=== PATIENT | female | born 1945 | race Caucasian/White ===

== ENCOUNTER 2016-12-08 10:11 | Observation (INO) | payer OTHER ==
[2016-12-08] MEDS ORDERED: Sodium Chloride 0.9% 1,000 ML IV ONE (10:45)
--- NOTE | 2016-12-08 10:45 | C.PDOC ---
History Of Present Illness 71 Y/O FEMALE PRESENTS TO ED WITH C/O DIFFUSE ABDOMINAL PAIN ONSET THIS MORNING. REPORTS ASSOCIATED DIARRHEA. DENIES FEVER, CHILLS, VOMITING. PT DENIES SIMILAR SYMPTOMS IN THE PAST. Time Seen by Provider: 12/08/16 10:35 Chief Complaint (Nursing): Abdominal Pain History Per: Patient History/Exam Limitations: no limitations Onset/Duration Of Symptoms: Days Current Symptoms Are (Timing): Still Present Location Of Pain/Discomfort: Diffuse Radiation Of Pain To:: None Quality Of Discomfort: "Pain" Associated Symptoms: Diarrhea. denies: Fever, Chills, Vomiting, Urinary Symptoms Recent travel outside of the [place]: No Past Medical History Reviewed: Historical Data, Nursing Documentation, Vital Signs Vital Signs: Last Vital Signs Temp 98.0 F 12/08/16 13:17 Pulse 73 12/08/16 13:17 Resp 20 12/08/16 13:17 BP 115/71 12/08/16 13:17 Pulse Ox 100 12/08/16 15:04 - Medical History PMH: Gastritis, Hypercholesterolemia Family History: States: Unknown Family Hx - Social History Hx Alcohol Use: No Hx Substance Use: No - Immunization History Hx Tetanus Toxoid Vaccination: No Hx Influenza Vaccination: No Hx Pneumococcal Vaccination: No Review Of Systems Except As Marked, All Systems Reviewed And Found Negative. Constitutional: Negative for: Fever, Chills Cardiovascular: Negative for: Chest Pain Respiratory: Negative for: Cough, Shortness of Breath, Wheezing Gastrointestinal: Positive for: Abdominal Pain, Diarrhea. Negative for: Nausea , Vomiting Genitourinary: Negative for: Dysuria Skin: Negative for: Rash Neurological: Negative for: Headache, Dizziness Physical Exam - Physical Exam Appears: Non-toxic, No Acute Distress Skin: Normal Color, Warm, Dry Head: Atraumatic, Normacephalic Oral Mucosa: Moist Chest: Symmetrical Cardiovascular: Rhythm Regular Respiratory: No Rales, No Rhonchi, No Wheezing Gastrointestinal/Abdominal: Soft, No Tenderness, No Distention, No Guarding, No Rebound Back: Normal Inspection, No CVA Tenderness Extremity: Normal ROM, Capillary Refill (< 2 SEC.) Neurological/Psych: Oriented x3, Normal Speech, Normal Cognition ED Course And Treatment - Laboratory Results Result Diagrams: 12/08/16 10:58 12/08/16 10:58 ECG: Interpreted By Me ECG Rhythm: Sinus Rhythm ECG Interpretation: Normal Rate From EC O2 Sat by Pulse Oximetry: 100 (RA) Pulse Ox Interpretation: Normal - CT Scan/US CT ABDOMEN/PELVIS Other Rad Studies (CT/US): Read By Radiologist CT/US Interpretation: IMPRESSION: Mildly dilated appendix measures approximately 7 mm in diameter in is fluid-filled. No significant periappendiceal inflammatory changes are identified. Recommend clinical correlation including physical exam and white blood cell count in order to assess for possibility of acute appendicitis. 3.1 x 4.0 cm probable left ovarian cyst. If indicated, pelvic ultrasound may be considered for further evaluation. Cholelithiasis. Hypoattenuation of the liver compatible with hepatic steatosis. Soft tissue nodular densities throughout bilateral buttocks , nonspecific. Additional incidental findings as above. ULTRASOUND ABDOMEN LIMITED Other Rad Studies (CT/US): Read By Radiologist CT/US Interpretation: IMPRESSION: Echogenic liver may be seen in setting of hepatic parenchymal disease or fatty infiltration. Probable focal fatty sparing within the right hepatic lobe adjacent to the gallbladder fossa. Cholelithiasis. Progress - Re-Evaluation Re-evaluation Note: 12/08/16 10:45 CT ABDOMEN/PELVIS, EKG, LABS ORDERED. TREATED WITH ZOFRAN, MORPHINE, IVFs. - Data Reviewed Data Reviewed: Lab, Diagnostic imaging, EKG, Old records ED OBSERVATION Discharge: Yes Date of observation admission: 12/08/16 Time of observation admission: 10:30 - Observation admission statement Patient is placed on observation because of need: for additional diagnostics to rule-out acute/life threatening conditio - Goals of Observation Goals of Observation: Resolution of symptoms - Progress Note Progress Note: 12/08/16 13:48 APPEARS COMFORTABLE NAD. PENDING SURG RESIDENT EVAL 12/08/16 15:03 PS PENDING ELECTIVE ADILENE SURG @ [facility] NAME 12/28. SP EVAL SURG RESIDENT, PENDING D/W DR QUEZADA 12/08/16 15:13 PT OFFERED ADMISSION BY SURGERY BUT PT REFUSING PT CLEARED FOR DC. DC CIPRO AND FLAGYL X 1 WEEK Disposition Counseled Patient/Family Regarding: Studies Performed, Diagnosis, Need For Followup, Rx Given - Disposition Disposition: HOME/ ROUTINE Disposition Time: 15:14 Condition: GOOD - Clinical Impression Clinical Impression: Abdominal pain, Diarrhea - Scribe Statement The provider has reviewed the documentation as recorded by the Scribe SM All medical record entries made by the Scribe were at my direction and personally dictated by me. I have reviewed the chart and agree that the record accurately reflects my personal performance of the history, physical exam, medical decision making, and the department course for this patient. I have also personally directed, reviewed, and agree with the discharge instructions and disposition.
[2016-12-08] MEDS ORDERED: Sodium Chloride 0.9% 1,000 ML ONE (10:50)
[2016-12-08 10:56] LABS: URINE BILIRUBIN NEGATIVE (NEGATIVE); URINE BLOOD NEGATIVE (NEGATIVE); URINE COLOR Yellow (YELLOW); URINE GLUCOSE (UA) NORMAL (Normal); URINE KETONE TRACE mg/dL (NEGATIVE); URINE LEUKOCYTE ESTERASE NEG Leu/uL (Negative); URINE PROTEIN NEGATIVE (NEGATIVE); URINE UROBILINOGEN NORMAL mg/dL (0.2-1.0); WBC URINE 1 /hpf (0-5)
[2016-12-08 11:02] LABS: BASO % 0.3 % (0.0-2.0); EOS # 0.1 K/uL (0.0-0.7); EOS % 0.5 % (0.0-4.0); LYMPH # 1.1 K/uL (1.0-4.3); LYMPH % 9.9 % (20.0-40.0); MEAN CELL VOLUME 91.5 fL (81.0-99.0); MEAN CORPUSCULAR HEMOGLOBIN 31.4 pg (27.0-31.0); MEAN CORPUSCULAR HGB CONC 34.3 g/dL (33.0-37.0); MEAN PLATELET VOLUME 8.9 fL (7.2-11.7); MONO # 0.6 K/uL (0.0-0.8); MONO % 5.9 % (0.0-10.0); PLATELET COUNT 230 K/uL (130-400); WHITE BLOOD COUNT 10.7 K/uL (4.8-10.8)
[2016-12-08 11:09] LABS: CHLORIDE 102 mmol/L (98-107); SODIUM 136 mmol/L (132-148)
[2016-12-08 11:10] LABS: POTASSIUM 3.9 mmol/L (3.6-5.2)
[2016-12-08 11:12] LABS: ALB/GLOB RATIO 1.3 (1.0-2.1); ALKALINE PHOSPHATASE 72 U/L (38-126); ALT/SGPT 35 U/L (9-52); AST/SGOT 28 U/L (14-36); BILIRUBIN,TOTAL 0.6 mg/dL (0.2-1.3); BLOOD UREA NITROGEN 17 mg/dL (7-17); CALCIUM 9.3 mg/dl (8.6-10.4); CARBON DIOXIDE 22 mmol/L (22-30); GFR AFRICAN-AMERICAN > 60; GLUCOSE,RANDOM 98 mg/dL (65-105); TOTAL PROTEIN 7.7 g/dL (6.3-8.3)
[2016-12-08 11:30] LABS: NEUTROPHIL 86 % (50-75); TOTAL CELLS COUNTED 100
--- NOTE | 2016-12-08 11:58 | US ---
HISTORY: abd pain COMPARISON: Abdominal ultrasound performed 02/20/12. TECHNIQUE: Sonographic evaluation of the right upper quadrant of the abdomen. FINDINGS: LIVER: Measures 13.8 cm in length. Echogenic liver may be seen in setting of hepatic parenchymal disease or fatty infiltration. Probable focal fatty sparing within the right hepatic lobe adjacent to the gallbladder fossa. No focal hepatic mass identified. The main portal vein appears patent with normal directional flow. No intrahepatic bile duct dilatation. GALLBLADDER: Gallstones. No gallbladder wall thickening or pericholecystic edema. Negative sonographic Lucio's sign as assessed by the protozoology teacher. COMMON BILE DUCT: Measures 5 mm. PANCREAS: Not well-visualized. RIGHT KIDNEY: Measures 10.5 x 3.9 x 4.4 cm. No obstructing calculus or hydronephrosis identified. AORTA: Limited visualization appears grossly unremarkable. IVC: Limited visualization appears grossly unremarkable. OTHER FINDINGS: None . IMPRESSION: Echogenic liver may be seen in setting of hepatic parenchymal disease or fatty infiltration. Probable focal fatty sparing within the right hepatic lobe adjacent to the gallbladder fossa. Cholelithiasis.
[2016-12-08] MEDS ORDERED: Iodixanol 320 MG/ML 100 ML BOTTLE IV ONE (12:35)
[2016-12-08 13:17] VITALS: RESP 20
--- NOTE | 2016-12-08 13:27 | CT ---
PROCEDURE: CT Abdomen and Pelvis with contrast HISTORY: abd pain COMPARISON: Limited abdominal ultrasound performed 12/08/16 TECHNIQUE: Contrast dose: 100 cc Visipaque 320 Radiation dose: Total exam DLP = 360.85 MGy-cm. This CT exam was performed using one or more of the following dose reduction techniques: Automated exposure control, adjustment of the mA and/or kV according to patient size, and/or use of iterative reconstruction technique. FINDINGS: LOWER THORAX: Mild bibasilar atelectasis. No focal consolidation, significant pleural effusion, or definite pneumothorax. LIVER: Hypoattenuation of the liver compatible with hepatic steatosis. GALLBLADDER AND BILE DUCTS: Cholelithiasis. PANCREAS: Unremarkable. SPLEEN: Unremarkable. ADRENALS: Unremarkable. KIDNEYS AND URETERS: The kidneys enhance symmetrically. No hydronephrosis or obstructing calculus identified. VASCULATURE: No aortic aneurysm. BOWEL: Stomach is nondistended. Lack of oral contrast limits evaluation for bowel pathology. Bowel loops appear within normal limits of caliber without evidence of obstruction. APPENDIX: The appendix appears mildly dilated measuring approximately 7 mm in diameter and fluid-filled. No significant periappendiceal inflammatory changes are identified. PERITONEUM: No significant free fluid. No definite free air. LYMPH NODES: No bulky adenopathy identified. BLADDER: Unremarkable. REPRODUCTIVE: 3.1 x 4.0 cm suspected left ovarian cyst. BONES: Mild degenerative changes. . OTHER FINDINGS: Soft tissue nodular densities noted throughout bilateral buttocks, nonspecific. IMPRESSION: Mildly dilated appendix measures approximately 7 mm in diameter in is fluid-filled. No significant periappendiceal inflammatory changes are identified. Recommend clinical correlation including physical exam and white blood cell count in order to assess for possibility of acute appendicitis. 3.1 x 4.0 cm probable left ovarian cyst. If indicated, pelvic ultrasound may be considered for further evaluation. Cholelithiasis. Hypoattenuation of the liver compatible with hepatic steatosis. Soft tissue nodular densities throughout bilateral buttocks, nonspecific. Additional incidental findings as above.
[2016-12-08 15:21] VITALS: BP 107/69; PULSE 80; TEMP 97.9; O2SAT 98
--- NOTE | 2016-12-13 15:12 | CARD ---
APPROVED REPORT EKG Measurement Heart [id number] <Conclusion> Normal sinus rhythm Normal ECG
== END 2016-12-08 15:14 | disposition home or self-care (01) ==
LOC: C.ER 10:11 → C.9OBSV 10:30
PROVIDERS: ADMIT Emergency Medicine; ATTEND Emergency Medicine
DX: R10.9 Unspecified abdominal pain (principal); R19.7 Diarrhea, unspecified
CPT/HCPCS: 74177; 76705; 80053; 81001; 83690; 85025; 87086; 96360; 96361; 96374; G0378; J2270; J2405; J7040; Q9967

== ENCOUNTER 2016-12-09 12:44 | Emergency (ER) | payer OTHER ==
[2016-12-09 13:22] VITALS: BMI 23.8
[2016-12-09] MEDS ORDERED: Sodium Chloride 0.9% 1,000 ML IV ONE (13:29)
[2016-12-09] MEDS ORDERED: Sodium Chloride 0.9% 1,000 ML ONE (13:50)
[2016-12-09 13:53] LABS: BASO % 0.4 % (0.0-2.0); EOS % 0.7 % (0.0-4.0); HEMATOCRIT 36.5 % (34.0-47.0); LYMPH # 1.2 K/uL (1.0-4.3); MEAN CELL VOLUME 91.1 fL (81.0-99.0); MEAN CORPUSCULAR HEMOGLOBIN 31.3 pg (27.0-31.0); MEAN CORPUSCULAR HGB CONC 34.3 g/dL (33.0-37.0); MEAN PLATELET VOLUME 8.7 fL (7.2-11.7); MONO # 0.4 K/uL (0.0-0.8); WHITE BLOOD COUNT 4.1 K/uL (4.8-10.8)
[2016-12-09 14:01] LABS: CHLORIDE 100 mmol/L (98-107); SODIUM 137 mmol/L (132-148)
[2016-12-09 14:02] LABS: POTASSIUM 3.8 mmol/L (3.6-5.2)
[2016-12-09 14:04] LABS: ALB/GLOB RATIO 1.1 (1.0-2.1); ALKALINE PHOSPHATASE 54 U/L (38-126); ALT/SGPT 36 U/L (9-52); AST/SGOT 32 U/L (14-36); BILIRUBIN,TOTAL 0.3 mg/dL (0.2-1.3); BLOOD UREA NITROGEN 17 mg/dL (7-17); CALCIUM 8.6 mg/dl (8.6-10.4); CARBON DIOXIDE 27 mmol/L (22-30); GFR AFRICAN-AMERICAN > 60; GLUCOSE,RANDOM 83 mg/dL (65-105); TOTAL PROTEIN 6.8 g/dL (6.3-8.3)
[2016-12-09 15:34] VITALS: BP 112/74; PULSE 71; RESP 16; TEMP 98.1; O2SAT 99
--- NOTE | 2016-12-09 18:27 | C.PDOC ---
History Of Present Illness 71 y/o female presents to ED with complaints of right side abdominal pain. Patient states she was seen at ED yesterday for same symptoms and had a negative CT scan and had surgery consult. Patient is compliant with medications given and reports mild nausea but denies fever, vomiting or any other complaints at this time. Chief Complaint (Nursing): Abdominal Pain History Per: Patient History/Exam Limitations: no limitations Onset/Duration Of Symptoms: Days Current Symptoms Are (Timing): Still Present Past Medical History Reviewed: Historical Data, Nursing Documentation, Vital Signs Vital Signs: Last Vital Signs Temp 98.1 F 12/09/16 15:32 Pulse 71 12/09/16 15:32 Resp 16 12/09/16 15:32 BP 112/74 12/09/16 15:32 Pulse Ox 99 12/09/16 18:35 - Medical History PMH: Gastritis, Hypercholesterolemia, Osteoporosis Surgical History: No Surg Hx Family History: States: No Known Family Hx - Social History Hx Alcohol Use: No Hx Substance Use: No - Immunization History Hx Tetanus Toxoid Vaccination: No Hx Influenza Vaccination: Yes (2016 per pt) Hx Pneumococcal Vaccination: Yes (2016 per pt) Review Of Systems Except As Marked, All Systems Reviewed And Found Negative. Constitutional: Negative for: Fever, Chills Gastrointestinal: Positive for: Nausea, Abdominal Pain. Negative for: Vomiting Musculoskeletal: Negative for: Back Pain Skin: Negative for: Rash Neurological: Negative for: Weakness, Numbness Physical Exam - Physical Exam Appears: Non-toxic, No Acute Distress Skin: Normal Color, Warm, Dry, No Rash Head: Atraumatic, Normacephalic Oral Mucosa: Moist Neck: Normal ROM, Supple Chest: Symmetrical Cardiovascular: Rhythm Regular Respiratory: Normal Breath Sounds, No Rales, No Rhonchi, No Wheezing Gastrointestinal/Abdominal: Soft, Tenderness (Right sided), No Guarding, No Rebound Back: No CVA Tenderness Neurological/Psych: Oriented x3 ED Course And Treatment - Laboratory Results Result Diagrams: 12/09/16 13:46 12/09/16 13:46 O2 Sat by Pulse Oximetry: 99 (RA) Pulse Ox Interpretation: Normal Progress Note: Spoke to Surgery agricultural equipment salesperson who evaluated patient and cleared for discharge to follow up with PMD in 48 hours Disposition - Disposition Disposition: HOME/ ROUTINE Disposition Time: 15:30 Condition: GOOD Additional Instructions: Thank you for letting us take care of you today. Your provider was [Provider Name Here]. You were treated for abdominal pain. The emergency medical care you received today was directed at your acute symptoms. If you were prescribed any medication, please fill it and take as directed. It may take several days for your symptoms to resolve. Return to the Emergency Department if your symptoms worsen, do not improve, or if you have any other problems. Please contact your doctor or call one of the physicians/clinics you have been referred to that are listed on the Patient Visit Information form that is included in your discharge packet. Bring any paperwork you were given at discharge with you along with any medications you are taking to your follow up visit. Our treatment cannot replace ongoing medical care by a primary care provider (PCP) outside of the emergency department. Thank you for allowing the [facility] team to be part of your care today. Follow up with your doctor in 2-3 days. Continue taking the antibiotics as prescribed. Herber por dejarnos cuidar de usted hoy. Vaz proveedor fue [Nombre del proveedor aqu]. Se le trat por dolor abdominal. La atencin mdica de emergencia que recibi hoy fue dirigida a nery sntomas agudos. Si le recetaron algn medicamento, llvelo y tome christiano se le indique. Puede allan varios bazan para que nery sntomas se resuelvan. Vuelva al Departamento de Emergencias si nery sntomas empeoran, no mejoran, o si tiene otros problemas. Comunquese con vaz mdico o llame a aquiles de los mdicos / clnicas a los que [place] sido referido y que se enumeran en el formulario Informacin de la visita al paciente que se incluye en vaz paquete de yamileth. Traiga todo el papeleo que le dieron al yamileth con usted, junto con los medicamentos que est tomando a vaz visita de seguimiento. Nuestro tratamiento no puede reemplazar la atencin m dica continua por un proveedor de atencin primaria (PCP) fuera del departamento de emergencia. Herber por permitir que el equipo de [facility] forme parte de vaz atenci n hoy. Siga con vaz mdico en 2-3 bazan. Contine tomando los antibiticos segn lo prescrito Instructions: Abdominal Pain (ED) Forms: Gen Discharge Inst Finnish Print Language: JAMAICAN - Clinical Impression Clinical Impression: Abdominal pain - Scribe Statement The provider has reviewed the documentation as recorded by the Scribbarbara Bueno All medical record entries made by the Scribe were at my direction and personally dictated by me. I have reviewed the chart and agree that the record accurately reflects my personal performance of the history, physical exam, medical decision making, and the department course for this patient. I have also personally directed, reviewed, and agree with the discharge instructions and disposition.
== END 2016-12-09 16:15 | disposition home or self-care (01) ==
LOC: C.ER 12:44
DX: R10.9 Unspecified abdominal pain (principal)
CPT/HCPCS: 80053; 83690; 85025; 96361; 96374; 96375; 99284; J2405; J7040

== ENCOUNTER 2017-07-15 23:41 | Inpatient (IN) | payer OTHER ==
[2017-07-15 23:42] VITALS: BMI 23.8
[2017-07-16] MEDS ORDERED: Sodium Chloride 0.9% 1,000 ML IV ONE (00:04)
[2017-07-16] MEDS ORDERED: Nitroglycerin 2% Ointment Foilpak UD TOP STA (00:05)
--- NOTE | 2017-07-16 00:06 | C.PDOC ---
History Of Present Illness 71 year old female presents to the ER with a complaint of chest pain that began 20 minutes prior to arrival. Patient describes the pain as a throbbing pain to the left anterior chest wall that worsens with deep inspiration. Denies fever, SOB, or diaphoresis. Chief Complaint (Nursing): Chest Pain History Per: Patient History/Exam Limitations: no limitations Onset/Duration Of Symptoms: Hrs Current Symptoms Are (Timing): Still Present Quality: Other (Throbbing) Associated Symptoms: denies: Nausea, Dyspnea, Diaphoresis, Syncope Modifying Factors: None Exacerbating Factors: None Alleviating Factors: None Recent travel outside of the [place]: No Past Medical History Reviewed: Historical Data, Nursing Documentation, Vital Signs Vital Signs: Last Vital Signs Temp 97.8 F 07/15/17 23:55 Pulse 61 07/16/17 00:49 Resp 18 07/16/17 00:49 BP 99/54 L 07/16/17 00:49 Pulse Ox 100 07/16/17 00:49 - Medical History PMH: Gastritis, Hypercholesterolemia, Osteoporosis Surgical History: Cholecystectomy Family History: States: Unknown Family Hx - Social History Hx Alcohol Use: No Hx Substance Use: No - Immunization History Hx Tetanus Toxoid Vaccination: No Hx Influenza Vaccination: Yes (2016 per pt) Hx Pneumococcal Vaccination: Yes (2016 per pt) Review Of Systems Constitutional: Negative for: Fever Cardiovascular: Positive for: Chest Pain. Negative for: Palpitations Respiratory: Negative for: Shortness of Breath Gastrointestinal: Negative for: Nausea, Vomiting Neurological: Negative for: Weakness, Numbness Physical Exam - Physical Exam Appears: Non-toxic, No Acute Distress Skin: Normal Color, Warm, Dry Head: Atraumatic, Normacephalic Eye(s): bilateral: Normal Inspection Oral Mucosa: Moist Chest: Symmetrical, Tenderness (Mild to left anterior wall) Cardiovascular: Rhythm Regular Respiratory: Normal Breath Sounds, No Rales, No Rhonchi, No Wheezing Gastrointestinal/Abdominal: Soft, No Tenderness Extremity: Normal ROM (x4) Neurological/Psych: Oriented x3, Normal Speech ED Course And Treatment - Laboratory Results Result Diagrams: 07/16/17 00:21 07/16/17 00:21 ECG: Interpreted By Me, Viewed By Me ECG Rhythm: Sinus Rhythm, ST/T Changes, Nonspecific Changes ECG Interpretation: Abnormal Interpretation Of ECG: NSR, ST-T changes in I, AVL which was not noted on tracings of 12/08/2016 Rate From EC O2 Sat by Pulse Oximetry: 100 Pulse Ox Interpretation: Normal - Radiology CXR: Interpreted by Me, Viewed By Me CXR Interpretation: Yes: No Acute Disease, Other (normal chest film). No: Infiltrates, Cardiomegaly Progress Note: EKG, blood work, and CXR ordered. Aspirin, nitrobid, toradol, and IV fluids administered. Disposition Discussed With Dr.: Dominick Krishnamurthy Doctor Will See Patient In The: Hospital Counseled Patient/Family Regarding: Diagnosis - Disposition Disposition: HOSPITALIZED Disposition Time: 02:38 Condition: STABLE Forms: [facility] (Bermudian) - POA Present On Arrival: None - Clinical Impression Clinical Impression: Chest pain - Scribe Statement The provider has reviewed the documentation as recorded by the Scribe Ashok Mcgregor All medical record entries made by the Scribe were at my direction and personally dictated by me. I have reviewed the chart and agree that the record accurately reflects my personal performance of the history, physical exam, medical decision making, and the department course for this patient. I have also personally directed, reviewed, and agree with the discharge instructions and disposition.
--- NOTE | 2017-07-16 00:07 | C.PDOC ---
History Of Present Illness 71 year old female presents to the ER with a complaint of chest pain that began 20 minutes prior to arrival. Patient describes the pain as a throbbing pain to the left anterior chest wall that worsens with deep inspiration. Denies fever, SOB, or diaphoresis. Chief Complaint (Nursing): Chest Pain History Per: Patient History/Exam Limitations: no limitations Onset/Duration Of Symptoms: Hrs Current Symptoms Are (Timing): Still Present Associated Symptoms: denies: Nausea, Dyspnea, Diaphoresis, Syncope, Other (Fever , SOB) Modifying Factors: None Exacerbating Factors: None Alleviating Factors: None Recent travel outside of the [place]: No Past Medical History Reviewed: Historical Data, Nursing Documentation, Vital Signs Vital Signs: Last Vital Signs Temp 97.8 F 07/15/17 23:55 Pulse 60 07/15/17 23:55 Resp 21 07/15/17 23:55 BP 129/67 07/15/17 23:55 Pulse Ox 100 07/15/17 23:55 - Medical History PMH: Gastritis, Hypercholesterolemia, Osteoporosis Surgical History: Cholecystectomy Family History: States: Unknown Family Hx - Social History Hx Alcohol Use: No Hx Substance Use: No - Immunization History Hx Tetanus Toxoid Vaccination: No Hx Influenza Vaccination: Yes (2016 per pt) Hx Pneumococcal Vaccination: Yes (2016 per pt) Review Of Systems Constitutional: Negative for: Fever, Sweats Cardiovascular: Positive for: Chest Pain. Negative for: Palpitations Respiratory: Negative for: Shortness of Breath Gastrointestinal: Negative for: Nausea, Vomiting Neurological: Negative for: Weakness, Numbness Physical Exam - Physical Exam Appears: Non-toxic, No Acute Distress Skin: Normal Color, Warm, Dry Head: Atraumatic, Normacephalic Eye(s): bilateral: Normal Inspection Oral Mucosa: Moist Chest: Tenderness (Mild to left anterior wall) Cardiovascular: Rhythm Regular Respiratory: Normal Breath Sounds, No Rales, No Rhonchi, No Wheezing Gastrointestinal/Abdominal: Soft, No Tenderness Neurological/Psych: Oriented x3, Normal Speech ED Course And Treatment O2 Sat by Pulse Oximetry: 100 (Room air) Pulse Ox Interpretation: Normal Progress Note: EKG, blood work, and CXR ordered. Aspirin, nitrobid, toradol, and IV fluids administered. Disposition - Disposition Forms: [email or web address] Connect (French) - Scribe Statement The provider has reviewed the documentation as recorded by the Scribe Ashok Mcgregor All medical record entries made by the Jasmina were at my direction and personally dictated by me. I have reviewed the chart and agree that the record accurately reflects my personal performance of the history, physical exam, medical decision making, and the department course for this patient. I have also personally directed, reviewed, and agree with the discharge instructions and disposition.
[2017-07-16] MEDS ORDERED: Sodium Chloride 0.9% 1,000 ML ONE (00:10)
[2017-07-16] MEDS ORDERED: Nitroglycerin 2% Ointment Foilpak UD TOP ONE (00:22)
[2017-07-16 00:32] LABS: BASO % 0.5 % (0.0-2.0); EOS # 0.1 K/uL (0.0-0.7); EOS % 1.7 % (0.0-4.0); HEMOGLOBIN 12.6 g/dL (11.0-16.0); LYMPH % 45.4 % (20.0-40.0); MEAN CELL VOLUME 91.6 fL (81.0-99.0); MEAN CORPUSCULAR HEMOGLOBIN 31.6 pg (27.0-31.0); MEAN CORPUSCULAR HGB CONC 34.5 g/dL (33.0-37.0); MEAN PLATELET VOLUME 8.8 fL (7.2-11.7); MONO # 0.4 K/uL (0.0-0.8); MONO % 6.2 % (0.0-10.0); NEUT % 46.2 % (50.0-75.0); RBC 3.99 Mil/uL (3.80-5.20); RED CELL DISTRIBUTION WIDTH 13.9 % (11.5-14.5); WHITE BLOOD COUNT 6.6 K/uL (4.8-10.8)
[2017-07-16 00:43] LABS: D DIMER < 200 ng/mlDDU (0-243); PARTIAL THROMBOPLASTIN TIME 28 SECONDS (21-34); PROTHROMBIN TIME 10.4 SECONDS (9.7-12.2)
[2017-07-16 00:45] LABS: ALB/GLOB RATIO 1.3 (1.0-2.1); ALBUMIN 3.6 g/dL (3.5-5.0); ALT/SGPT 33 U/L (9-52); AST/SGOT 35 U/L (14-36); BLOOD UREA NITROGEN 23 mg/dL (7-17); CALCIUM 8.7 mg/dl (8.6-10.4); GFR AFRICAN-AMERICAN > 60; GFR NON-AFRICAN AMERICAN > 60
[2017-07-16] MEDS ORDERED: Enoxaparin 40 mg Syringe SC STA (02:41)
--- NOTE | 2017-07-16 10:00 | RAD ---
PROCEDURE: CHEST RADIOGRAPH, 1 VIEW HISTORY: chest pain COMPARISON: None available. FINDINGS: LUNGS: No acute pulmonary disease appreciated bilaterally. PLEURA: No pneumothorax or pleural fluid seen. CARDIOVASCULAR: Mild cardiomegaly not excluded. No pulmonary vascular derangement evident. OSSEOUS STRUCTURES: No significant abnormalities. VISUALIZED UPPER ABDOMEN: Normal. OTHER FINDINGS: None. IMPRESSION: Mild cardiomegaly not excluded. No pulmonary vascular derangement appreciated. No airspace disease bilaterally.
[2017-07-16 10:55] LABS: CK-MB 28.7 ng/mL (0.0-3.38)
[2017-07-16 11:21] LABS: TROPONIN I 2.02 ng/mL (0.00-0.120)
[2017-07-16 14:46] LABS: CK-MB 73.7 ng/mL (0.0-3.38); TROPONIN I 11.2 ng/mL (0.00-0.120)
[2017-07-16] MEDS: Heparin25000 units/250ml 1/2NS 25,000 UNITS/250 ML BAG IV PRN (16:06)
[2017-07-16] MEDS: Pantoprazole 20 mg EC Tab PO SCH (16:07)
--- NOTE | 2017-07-16 17:17 | CP.PCM.CON ---
History of Present Illness - History of Present Illness History of Present Illness: Re: Chest pain Elevated serum troponins This patient presented with chest pain throbbing in nature in the anterior chest associated with tenderness There is no history of nausea vomiting diaphoresis dyspnea palpitations dizziness Past medical Systemic hypertension Osteoporosis "Gastritis" Past surgery: Gall bladder removal Exam No distress Afebrile Normal venous pressures Clear lungs ?PMI Normal heart sounds No rub No edema DP +=+ EKG: sinus; no significant STT abnormalities Labs: reviewed; Troponins: 04/16; BUN 23; sugars: 133 Chest X-ray: unremarkable; Personally reviewed Past Patient History - Infectious Disease Hx of Infectious Diseases: None - Past Social History Smoking Status: Never Smoked - CARDIAC Hx Hypercholesterolemia: Yes - MUSCULOSKELETAL/RHEUMATOLOGICAL Hx Osteoporosis: Yes - GASTROINTESTINAL Hx Gastritis: Yes - PSYCHIATRIC Hx Substance Use: No - SURGICAL HISTORY Hx Cholecystectomy: Yes - ANESTHESIA Hx Anesthesia: Yes Hx Anesthesia Reactions: No Meds Allergies/Adverse Reactions: Allergies Allergy/AdvReac Type Severity Reaction Status Date / Time seasonal allergies Allergy Uncoded 07/16/17 00:03 - Medications Medications: Current Medications Aspirin (Ecotrin) 81 mg PO DAILY [facility] Last Admin: 07/16/17 09:19 Dose: 81 mg Clopidogrel Bisulfate (Plavix) 75 mg PO DAILY [facility] Heparin Sodium/Sodium Chloride (Heparin 28888 Units/250ml 1/2 Normal Saline) 25 ,000 units in 250 mls @ 6.532 mls/hr IV .Q24H PRN; Protocol; 12 UNITS/KG/HR PRN Reason: PROTOCOL Last Admin: 07/16/17 16:06 Dose: 12 units/kg/hr, 6.532 mls/hr Pantoprazole Sodium (Protonix Ec Tab) 20 mg PO DAILY [facility] Last Admin: 07/16/17 16:07 Dose: 20 mg Rosuvastatin Calcium (Crestor) 20 mg PO HS [facility] Results - Vital Signs Recent Vital Signs: Last Vital Signs Temp 97.6 F 07/16/17 15:27 Pulse 66 07/16/17 16:00 Resp 18 07/16/17 15:27 BP 127/52 L 07/16/17 15:27 Pulse Ox 99 07/16/17 15:27 - Labs Result Diagrams: 07/16/17 00:21 07/16/17 00:21 Labs: Laboratory Results - last 24 hr 07/16/17 07/16/1707/16/18 00:21 00:21 00:21 WBC 6.6 D RBC 3.99 Hgb 12.6 Hct 36.5 MCV 91.6 MCH 31.6 H MCHC 34.5 RDW 13.9 Plt Count 215 MPV 8.8 Neut % (Auto) 46.2 L Lymph % (Auto) 45.4 H [place] % (Auto) 6.2 Eos % (Auto) 1.7 Baso % (Auto) 0.5 Neut # (Auto) 3.0 Lymph # (Auto) 3.0 [place] # (Auto) 0.4 Eos # (Auto) 0.1 Baso # (Auto) 0.0 PT 10.4 INR 1.0 APTT 28 D-Dimer, Quantitative < 200 Sodium 146 Potassium 3.9 Chloride 107 Carbon Dioxide 28 Anion Gap 15 BUN 23 H Creatinine 0.9 Est GFR ( Amer) > 60 Est GFR (Non-Af Amer) > 60 Random Glucose 133 H Calcium 8.7 Total Bilirubin 0.2 AST 35 ALT 33 Alkaline Phosphatase 62 Total Creatine Kinase CK-MB (Mass) Troponin I 0.0240 Total Protein 6.5 Albumin 3.6 Globulin 2.8 Albumin/Globulin Ratio 1.3 07/16/17 07/16/17 07:27 14:16 WBC RBC Hgb Hct MCV MCH MCHC RDW Plt Count MPV Neut % (Auto) Lymph % (Auto) [place] % (Auto) Eos % (Auto) Baso % (Auto) Neut # (Auto) Lymph # (Auto) [place] # (Auto) Eos # (Auto) Baso # (Auto) PT INR APTT D-Dimer, Quantitative Sodium Potassium Chloride Carbon Dioxide Anion Gap BUN Creatinine Est GFR ( Amer) Est GFR (Non-Af Amer) Random Glucose Calcium Total Bilirubin AST ALT Alkaline Phosphatase Total Creatine Kinase 305 H 1042 H CK-MB (Mass) 28.7 H 73.7 H Troponin I 2.0200 H* 11.2000 H* Total Protein Albumin Globulin Albumin/Globulin Ratio Assessment & Plan - Assessment and Plan (Free Text) Assessment: Ms. Diaz presented with a chest pain syndrome on a background of few risk factors and elevated troponins in the serum with an incremental trend; discounting the chest tenderness in most likelihood this is an acute coronary syndrome/Non ST elevation myocardial infarction; there is no setting or suggestion of pulmonary embolism Agree with anticoagulation Plan: Transfer to the ICU NPO post midnight Cardiac cath. DW patients daughter - Date & Time Date: 07/16/17 Time: 18:35
--- NOTE | 2017-07-16 22:21 | CP.PCM.CON ---
History of Present Illness - History of Present Illness History of Present Illness: 71 y/o female with pmx of hypercholesterolemia presents to [facility] with c/o chest pain. She is diagnosed with NSTEMI and currently being treated conservatively with DAPT + IV heparin. Patient's EKG reveals T wave changes in II, III, AVF (posterior/inferior region). ICU was consulted for increase in troponins. PAtient seen and examined at bedside. PAtient denies any chest pain, deneis any dizziness, denies any palpitations. Denies any abdominal pain. Patient's telemetry reveals HRs in 60s with no block or tachyarrythmia. Pmx: hypercholesterolemia SH: never smokes, no IVDU FH: (+)CAD ROS: reviewed and negative at time of evaluation Review of Systems - Review of Systems Review of Systems: see HPI Past Patient History - Infectious Disease Hx of Infectious Diseases: None - Past Social History Smoking Status: Never Smoked - CARDIAC Hx Hypercholesterolemia: Yes - MUSCULOSKELETAL/RHEUMATOLOGICAL Hx Osteoporosis: Yes - GASTROINTESTINAL Hx Gastritis: Yes - PSYCHIATRIC Hx Substance Use: No - SURGICAL HISTORY Hx Cholecystectomy: Yes - ANESTHESIA Hx Anesthesia: Yes Hx Anesthesia Reactions: No Meds Allergies/Adverse Reactions: Allergies Allergy/AdvReac Type Severity Reaction Status Date / Time seasonal allergies Allergy Uncoded 07/16/17 00:03 - Medications Medications: Current Medications Aspirin (Ecotrin) 81 mg PO DAILY [facility] 234 BEDS AT [facility] Last Admin: 07/16/17 09:19 Dose: 81 mg Clopidogrel Bisulfate (Plavix) 75 mg PO DAILY [facility]CLUDE 234 BEDS AT THE [facility] Heparin Sodium/Sodium Chloride (Heparin 20005 Units/250ml 1/2 Normal Saline) 25 ,000 units in 250 mls @ 6.532 mls/hr IV .Q24H PRN; Protocol; 12 UNITS/KG/HR PRN Reason: PROTOCOL Last Admin: 07/16/17 16:06 Dose: 12 units/kg/hr, 6.532 mls/hr Pantoprazole Sodium (Protonix Ec Tab) 20 mg PO DAILY [facility] 234 BEDS AT THE [facility] Last Admin: 07/16/17 16:07 Dose: 20 mg Rosuvastatin Calcium (Crestor) 20 mg PO HS [facility]CLUDE 234 BEDS AT THE [facility] Last Admin: 07/16/17 22:16 Dose: 20 mg Physical Exam - Head Exam Head Exam: ATRAUMATIC, NORMAL INSPECTION, NORMOCEPHALIC - Eye Exam Eye Exam: Normal appearance - ENT Exam ENT Exam: Mucous Membranes Moist - Respiratory Exam Respiratory Exam: NORMAL BREATHING PATTERN - Cardiovascular Exam Cardiovascular Exam: REGULAR RHYTHM, +S1, +S2, Systolic Murmur - GI/Abdominal Exam GI & Abdominal Exam: Normal Bowel Sounds, Soft. absent: Rebound, Rigid - Extremities Exam Extremities exam: Positive for: normal inspection. Negative for: pedal edema Results - Vital Signs Recent Vital Signs: Last Vital Signs Temp 97.6 F 07/16/17 15:27 Pulse 66 07/16/17 16:00 Resp 18 07/16/17 15:27 BP 127/52 L 07/16/17 15:27 Pulse Ox 99 07/16/17 15:27 - Labs Result Diagrams: 07/16/17 00:21 07/16/17 00:21 Labs: Laboratory Results - last 24 hr 07/16/17 07/16/17 07/16/17 00:21 00:21 00:21 WBC 6.6 D RBC 3.99 Hgb 12.6 Hct 36.5 MCV 91.6 MCH 31.6 H MCHC 34.5 RDW 13.9 Plt Count 215 MPV 8.8 Neut % (Auto) 46.2 L Lymph % (Auto) 45.4 H [place] % (Auto) 6.2 Eos % (Auto) 1.7 Baso % (Auto) 0.5 Neut # (Auto) 3.0 Lymph # (Auto) 3.0 [place] # (Auto) 0.4 Eos # (Auto) 0.1 Baso # (Auto) 0.0 PT 10.4 INR 1.0 APTT 28 D-Dimer, Quantitative < 200 Sodium 146 Potassium 3.9 Chloride 107 Carbon Dioxide 28 Anion Gap 15 BUN 23 H Creatinine 0.9 Est GFR ( Amer) > 60 Est GFR (Non-Af Amer) > 60 Random Glucose 133 H Calcium 8.7 Total Bilirubin 0.2 AST 35 ALT 33 Alkaline Phosphatase 62 Total Creatine Kinase CK-MB (Mass) Troponin I 0.0240 Total Protein 6.5 Albumin 3.6 Globulin 2.8 Albumin/Globulin Ratio 1.3 07/16/17 07/16/17 07:27 14:16 WBC RBC Hgb Hct MCV MCH MCHC RDW Plt Count MPV Neut % (Auto) Lymph % (Auto) [place] % (Auto) Eos % (Auto) Baso % (Auto) Neut # (Auto) Lymph # (Auto) [place] # (Auto) Eos # (Auto) Baso # (Auto) PT INR APTT D-Dimer, Quantitative Sodium Potassium Chloride Carbon Dioxide Anion Gap BUN Creatinine Est GFR ( Amer) Est GFR (Non-Af Amer) Random Glucose Calcium Total Bilirubin AST ALT Alkaline Phosphatase Total Creatine Kinase 305 H 1042 H CK-MB (Mass) 28.7 H 73.7 H Troponin I 2.0200 H* 11.2000 H* Total Protein Albumin Globulin Albumin/Globulin Ratio Assessment & Plan - Assessment and Plan (Free Text) Plan: -NSTEMI:continue DAPT, statin and IV heparin x 48 hours, suspect patient will benefit from cardiology input regarding revascularization. PAtient currently is chest pain free. -consider starting IVF at baseline at 50 mol/hr NS for hydration -obtain echo -continue DVT/PUD ppx -keep patient NPO for any unanticiapted procedures -Patient remains hemodynamically stable. -Patient was informed of current treatment regimen, including treatment with IV heparin. Risks, benefits and alternatives explained. d/w nursing and patient. Please call ICU if patient's clinical status worsens. - Date & Time Date: 07/16/17 Time: 22:26
--- NOTE | 2017-07-16 23:53 | CP.PCM.HP ---
History of Present Illness - History of Present Illness History of Present Illness: History of Present Illness: 71 y/o female with pmx of hypercholesterolemia presents to [facility] with c/o chest pain. She is diagnosed with NSTEMI and currently being treated conservatively with DAPT + IV heparin. Patient's EKG reveals T wave changes in II, III, AVF (posterior/inferior region). ICU was consulted for increase in troponins. PAtient seen and examined at bedside. PAtient denies any chest pain, deneis any dizziness, denies any palpitations. Denies any abdominal pain. Patient's telemetry reveals HRs in 60s with no block or tachyarrythmia. Pmx: hypercholesterolemia SH: never smokes, no IVDU FH: (+)CAD ROS: reviewed and negative at time of evaluation Past Patient History - Infectious Disease Hx of Infectious Diseases: None - Past Social History Smoking Status: Never Smoked - CARDIAC Hx Hypercholesterolemia: Yes - MUSCULOSKELETAL/RHEUMATOLOGICAL Hx Osteoporosis: Yes - GASTROINTESTINAL Hx Gastritis: Yes - PSYCHIATRIC Hx Substance Use: No - SURGICAL HISTORY Hx Cholecystectomy: Yes - ANESTHESIA Hx Anesthesia: Yes Hx Anesthesia Reactions: No Meds Allergies/Adverse Reactions: Allergies Allergy/AdvReac Type Severity Reaction Status Date / Time seasonal allergies Allergy Uncoded 07/16/17 00:03 Results - Vital Signs Recent Vital Signs: Last Vital Signs Temp 97.6 F 07/16/17 15:27 Pulse 66 07/16/17 16:00 Resp 18 07/16/17 15:27 BP 127/52 L 07/16/17 15:27 Pulse Ox 99 07/16/17 15:27 - Labs Result Diagrams: 07/16/17 00:21 07/16/17 00:21 Labs: Laboratory Results - last 24 hr 07/16/17 07/16/17 07/16/17 00:21 00:21 00:21 WBC 6.6 D RBC 3.99 Hgb 12.6 Hct 36.5 MCV 91.6 MCH 31.6 H MCHC 34.5 RDW 13.9 Plt Count 215 MPV 8.8 Neut % (Auto) 46.2 L Lymph % (Auto) 45.4 H [place] % (Auto) 6.2 Eos % (Auto) 1.7 Baso % (Auto) 0.5 Neut # (Auto) 3.0 Lymph # (Auto) 3.0 [place] # (Auto) 0.4 Eos # (Auto) 0.1 Baso # (Auto) 0.0 PT 10.4 INR 1.0 APTT 28 D-Dimer, Quantitative < 200 Sodium 146 Potassium 3.9 Chloride 107 Carbon Dioxide 28 Anion Gap 15 BUN 23 H Creatinine 0.9 Est GFR ( Amer) > 60 Est GFR (Non-Af Amer) > 60 Random Glucose 133 H Calcium 8.7 Total Bilirubin 0.2 AST 35 ALT 33 Alkaline Phosphatase 62 Total Creatine Kinase CK-MB (Mass) Troponin I 0.0240 Total Protein 6.5 Albumin 3.6 Globulin 2.8 Albumin/Globulin Ratio 1.3 07/16/17 07/16/17 07/16/17 07:27 14:16 22:56 WBC RBC Hgb Hct MCV MCH MCHC RDW Plt Count MPV Neut % (Auto) Lymph % (Auto) [place] % (Auto) Eos % (Auto) Baso % (Auto) Neut # (Auto) Lymph # (Auto) [place] # (Auto) Eos # (Auto) Baso # (Auto) PT INR APTT 140 H* D D-Dimer, Quantitative Sodium Potassium Chloride Carbon Dioxide Anion Gap BUN Creatinine Est GFR ( Amer) Est GFR (Non-Af Amer) Random Glucose Calcium Total Bilirubin AST ALT Alkaline Phosphatase Total Creatine Kinase 305 H 1042 H CK-MB (Mass) 28.7 H 73.7 H Troponin I 2.0200 H* 11.2000 H* Total Protein Albumin Globulin Albumin/Globulin Ratio
[2017-07-17] MEDS: Heparin25000 units/250ml 1/2NS 25,000 UNITS/250 ML BAG IV PRN (00:27)
[2017-07-17 08:32] LABS: CK-MB 70.1 ng/mL (0.0-3.38); TROPONIN I 18.1 ng/mL (0.00-0.120)
[2017-07-17] MEDS ORDERED: Iodixanol 320 MG/ML 200 ML BOTTLE IV ONE (08:54)
[2017-07-17] MEDS ORDERED: Midazolam 2 MG/2 ML VIAL ONE (09:43)
[2017-07-17] MEDS ORDERED: Enoxaparin 40 mg Syringe SC SCH (10:00)
--- NOTE | 2017-07-17 10:16 | CP.PCM.PN ---
Subjective - Date & Time of Evaluation Date of Evaluation: 07/17/17 Time of Evaluation: 10:12 - Subjective Subjective: Patient denies any chest pain at this time. Objective - Vital Signs/Intake and Output Vital Signs (last 24 hours): Temp Pulse Resp BP Pulse Ox 97.9 F 55 L 18 119/65 99 07/17/17 07:05 07/17/17 07:05 07/17/17 07:05 07/17/17 07:05 07/17/17 08:29 Intake and Output: 07/17/17 07/17/17 06:59 18:59 Intake Total 281.85 Balance 281.85 - Medications Medications: Current Medications Aspirin (Ecotrin) 81 mg PO DAILY [facility] Last Admin: 07/16/17 09:19 Dose: 81 mg Clopidogrel Bisulfate (Plavix) 75 mg PO DAILY [facility] Heparin Sodium/Sodium Chloride (Heparin 00477 Units/250ml 1/2 Normal Saline) 25 ,000 units in 250 mls @ 4.899 mls/hr IV .Q24H PRN; Protocol; 9 UNITS/KG/HR PRN Reason: PROTOCOL Last Admin: 07/17/17 00:27 Dose: 9 units/kg/hr, 4.899 mls/hr Pantoprazole Sodium (Protonix Ec Tab) 20 mg PO DAILY [facility] Last Admin: 07/16/17 16:07 Dose: 20 mg Rosuvastatin Calcium (Crestor) 20 mg PO HS [facility] Last Admin: 07/16/17 22:16 Dose: 20 mg - Labs Labs: 07/16/17 00:21 07/16/17 00:21 PT 10.4 SECONDS (9.7-12.2) 07/16/17 00:21 INR 1.0 07/16/17 00:21 APTT 56 SECONDS (21-34) H D 07/17/17 07:22 - Head Exam Head Exam: NORMOCEPHALIC - Neck Exam Neck Exam: Normal Inspection - Respiratory Exam Respiratory Exam: NORMAL BREATHING PATTERN - Cardiovascular Exam Cardiovascular Exam: REGULAR RHYTHM - Extremities Exam Extremities Exam: Normal Inspection - Neurological Exam Neurological Exam: Oriented x3 Assessment and Plan (1) Chest pain Assessment & Plan: Patient with chest and double vessel disease with normal LV systolic function. Plans for intervention on RCA and LCx. Continue Heparin and DAPT. Monitor on telemetry. Transfer to another facility in AM for intervention. Status: Acute
--- NOTE | 2017-07-17 10:26 | CARD ---
APPROVED REPORT EKG Measurement Heart [id number] <Conclusion> Sinus bradycardia Otherwise normal ECG
[2017-07-17] MEDS: Pantoprazole 20 mg EC Tab PO SCH (11:22)
--- NOTE | 2017-07-17 12:35 | CARD ---
APPROVED REPORT EKG Measurement Heart [id number] <Conclusion> Sinus bradycardia Otherwise normal ECG
--- NOTE | 2017-07-17 15:10 | CP.PCM.CON ---
<Patrizia Mota - Last Filed: 07/17/17 15:04> History of Present Illness - History of Present Illness History of Present Illness: 71 year old Cypriot-Speaking female with PMHx of HLD admitted to ICU for NSTEMI. Diagnostic Cath showed 80% stenosis of LAD and 90@ stenosis of RCA. [place] [facility] [place] cardiac [place]. ROS POSITIVE: mild Headache, pain at catheter insertion (Left femoral). NEGATIVES: Fever, chills, chest pain, SOB, palpitations, nausea, vomiting, changes in bowel habits, urinary symptoms PMHx: HLD PSHx: cholecystectomy Allergies: Pepermint SocialHx: Denies tobacco, alcohol or illicit drug use FamHx: NOn-Cont. Meds: Reviewed Review of Systems - Review of Systems All systems: reviewed and no additional remarkable complaints except (As per HPI ) Review of Systems: As per HPI Past Patient History - Infectious Disease Hx of Infectious Diseases: None - Past Social History Smoking Status: Never Smoked - CARDIAC Hx Hypercholesterolemia: Yes - MUSCULOSKELETAL/RHEUMATOLOGICAL Hx Osteoporosis: Yes - GASTROINTESTINAL Hx Gastritis: Yes - PSYCHIATRIC Hx Substance Use: No - SURGICAL HISTORY Hx Cholecystectomy: Yes - ANESTHESIA Hx Anesthesia: Yes Hx Anesthesia Reactions: No Meds Allergies/Adverse Reactions: Allergies Allergy/AdvReac Type Severity Reaction Status Date / Time seasonal allergies Allergy Uncoded 07/16/17 00:03 - Medications Medications: Current Medications Aspirin (Ecotrin) 81 mg PO DAILY [facility] Last Admin: 07/17/17 13:24 Dose: 81 mg Clopidogrel Bisulfate (Plavix) 75 mg PO DAILY [facility] Last Admin: 07/17/17 13:23 Dose: 75 mg Heparin Sodium/Sodium Chloride (Heparin 18115 Units/250ml 1/2 Normal Saline) 25 ,000 units in 250 mls @ 4.899 mls/hr IV .Q24H PRN; Protocol; 9 UNITS/KG/HR PRN Reason: PROTOCOL Last Admin: 07/17/17 00:27 Dose: 9 units/kg/hr, 4.899 mls/hr Pantoprazole Sodium (Protonix Ec Tab) 20 mg PO DAILY [facility] Last Admin: 07/17/17 11:22 Dose: Not Given Rosuvastatin Calcium (Crestor) 20 mg PO HS [facility] Last Admin: 07/16/17 22:16 Dose: 20 mg Physical Exam - Constitutional Appears: Well, Non-toxic, No Acute Distress - Head Exam Head Exam: ATRAUMATIC, NORMOCEPHALIC - Eye Exam Eye Exam: EOMI - ENT Exam ENT Exam: Mucous Membranes Moist - Respiratory Exam Respiratory Exam: Clear to Auscultation Bilateral - Cardiovascular Exam Cardiovascular Exam: RRR, +S1, +S2 - GI/Abdominal Exam GI & Abdominal Exam: Soft. absent: Tenderness - Extremities Exam Extremities exam: Positive for: normal inspection. Negative for: pedal edema - Neurological Exam Neurological exam: Alert, Oriented x3 - Skin Additional comments: Dressing over left femoral vein. Dressing clean, dry, and intact. Results - Vital Signs Recent Vital Signs: Last Vital Signs Temp 99 F 07/17/17 14:00 Pulse 62 07/17/17 14:53 Resp 17 07/17/17 14:53 BP 111/62 07/17/17 14:53 Pulse Ox 100 07/17/17 14:53 - Labs Result Diagrams: 07/16/17 00:21 07/16/17 00:21 Labs: Laboratory Results - last 24 hr 07/16/17 07/17/17 07/17/17 22:56 07:22 07:22 APTT 140 H* D 56 H D Total Creatine Kinase 1177 H CK-MB (Mass) 70.1 H Troponin I 18.1000 H* Assessment & Plan - Assessment and Plan (Free Text) Assessment: 71 year old Cypriot-Speaking female with PMHx of HLD admitted to ICU for NSTEMI. Diagnostic Cath showed 80% stenosis of LAD and 90@ stenosis of RCA. Patient [place] [facility] [place] cardiac [place] Plan: Neuro: GCS: 15 Sedation: None Cardio: A: NSTEMI, HLD On Heparin Drip Pt to be [place] tomorrow [place] [facility] [place]. ASA/Plavix Cont. Crestor. Pulm/GI/Renal/Endo No Active Issues at this time Proph Patient on Heparin Drip Patient discussed with ICU Attending Patrizia Mota, PGY- 1 <Mervin Churchill - Last Filed: 07/17/17 16:43> Meds - Medications Medications: Current Medications Acetaminophen (Tylenol 325mg Tab) 650 mg PO Q6 PRN PRN Reason: (1-10) Pain or Fever Aspirin (Ecotrin) 81 mg PO DAILY [facility] Last Admin: 07/17/17 13:24 Dose: 81 mg Clopidogrel Bisulfate (Plavix) 75 mg PO DAILY [facility] Last Admin: 07/17/17 13:23 Dose: 75 mg Heparin Sodium/Sodium Chloride (Heparin 16742 Units/250ml 1/2 Normal Saline) 25 ,000 units in 250 mls @ 4.899 mls/hr IV .Q24H PRN; Protocol; 9 UNITS/KG/HR PRN Reason: PROTOCOL Last Admin: 07/17/17 00:27 Dose: 9 units/kg/hr, 4.899 mls/hr Pantoprazole Sodium (Protonix Ec Tab) 20 mg PO DAILY [facility] Last Admin: 07/17/17 11:22 Dose: Not Given Rosuvastatin Calcium (Crestor) 20 mg PO HS [facility] Last Admin: 07/16/17 22:16 Dose: 20 mg Results - Vital Signs Recent Vital Signs: Last Vital Signs Temp 98.4 F 07/17/17 16:00 Pulse 58 L 07/17/17 16:08 Resp 13 07/17/17 16:08 BP 107/63 07/17/17 16:08 Pulse Ox 97 07/17/17 16:08 - Labs Result Diagrams: 07/16/17 00:21 07/16/17 00:21 Labs: Laboratory Results - last 24 hr 07/16/17 07/17/17 07/17/17 22:56 07:22 07:22 APTT 140 H* D 56 H D Total Creatine Kinase 1177 H CK-MB (Mass) 70.1 H Troponin I 18.1000 H* Attending/Attestation - Attestation I have personally seen and examined this patient.: Yes I have fully participated in the care of the patient.: Yes I have reviewed all pertinent clinical information: Yes Notes (Text): 07/17/17 16:42 I have seen and examined the patient. Medical records, lab studies, and imaging were reviewed by me and a management plan was formulated on multidisciplinary rounds with resident Dr. Mota. I agree with their documented assessment and plan. Diagnostic Cath showed 80% stenosis of LAD and 90@ stenosis of RCA. Patient [place] [facility] [place] cardiac [place]. Monitoring post-cath , currently clinically stable. Critical Care Time 35 minutes. The documented time is cumulative and includes review of patient data/exams/labs /chart review and examination of the patient on rounds and throughout the day; time is exclusive of any procedures or teaching time.
--- NOTE | 2017-07-17 23:27 | CP.PCM.PN ---
Subjective - Date & Time of Evaluation Date of Evaluation: 07/17/17 Time of Evaluation: 19:40 - Subjective Subjective: Pt is feeling better, seen and examined by me today, improving Objective - Vital Signs/Intake and Output Vital Signs (last 24 hours): Temp Pulse Resp BP Pulse Ox 98.7 F 69 17 105/63 98 07/17/17 20:15 07/17/17 22:40 07/17/17 22:40 07/17/17 22:40 07/17/17 22:40 Intake and Output: 07/17/17 07/18/17 18:59 06:59 Intake Total 579.2 219.6 Output Total 300 400 Balance 279.2 -180.4 - Medications Medications: Current Medications Acetaminophen (Tylenol 325mg Tab) 650 mg PO Q6 PRN PRN Reason: (1-10) Pain or Fever Last Admin: 07/17/17 21:46 Dose: 650 mg Aspirin (Ecotrin) 81 mg PO DAILY [facility] Last Admin: 07/17/17 13:24 Dose: 81 mg Clopidogrel Bisulfate (Plavix) 75 mg PO DAILY [facility] Last Admin: 07/17/17 13:23 Dose: 75 mg Heparin Sodium/Sodium Chloride (Heparin 30221 Units/250ml 1/2 Normal Saline) 25 ,000 units in 250 mls @ 4.899 mls/hr IV .Q24H PRN; Protocol; 9 UNITS/KG/HR PRN Reason: PROTOCOL Last Admin: 07/17/17 00:27 Dose: 9 units/kg/hr, 4.899 mls/hr Pantoprazole Sodium (Protonix Ec Tab) 20 mg PO DAILY [facility] Last Admin: 07/17/17 11:22 Dose: Not Given Rosuvastatin Calcium (Crestor) 20 mg PO HS [facility] Last Admin: 07/17/17 21:45 Dose: 20 mg - Labs Labs: 07/16/17 00:21 07/16/17 00:21 PT 10.4 SECONDS (9.7-12.2) 07/16/17 00:21 INR 1.0 07/16/17 00:21 APTT 56 SECONDS (21-34) H D 07/17/17 07:22
[2017-07-18 06:58] LABS: BASO % 0.4 % (0.0-2.0); EOS % 0.6 % (0.0-4.0); LYMPH # 1.8 K/uL (1.0-4.3); LYMPH % 34.5 % (20.0-40.0); MEAN CELL VOLUME 92.3 fL (81.0-99.0); MEAN CORPUSCULAR HEMOGLOBIN 31.6 pg (27.0-31.0); MEAN CORPUSCULAR HGB CONC 34.2 g/dL (33.0-37.0); MEAN PLATELET VOLUME 9.1 fL (7.2-11.7); MONO # 0.4 K/uL (0.0-0.8); MONO % 8.6 % (0.0-10.0); NEUT # 2.9 K/uL (1.8-7.0); NEUT % 55.9 % (50.0-75.0); NRBC % 0.1 % (0.0-2.0); RBC 2.78 Mil/uL (3.80-5.20); RED CELL DISTRIBUTION WIDTH 13.7 % (11.5-14.5); WHITE BLOOD COUNT 5.1 K/uL (4.8-10.8)
[2017-07-18 07:03] LABS: HEMOGLOBIN 8.8 g/dL (11.0-16.0); INR 1.3; PROTHROMBIN TIME 14.1 SECONDS (9.7-12.2)
[2017-07-18 07:11] LABS: ALBUMIN 2.4 g/dL (3.5-5.0); ALT/SGPT 156 U/L (9-52); AST/SGOT 113 U/L (14-36); BLOOD UREA NITROGEN 12 mg/dL (7-17); CALCIUM 6.4 mg/dl (8.6-10.4); GFR AFRICAN-AMERICAN > 60; GFR NON-AFRICAN AMERICAN > 60
--- NOTE | 2017-07-18 07:18 | CARDCATH ---
PROCEDURE DATE: 07/17/2017 BRIEF CLINICAL HISTORY: The patient, who is an elderly female with a history of hypertension with workup, it was decided that the patient needs a cardiac cath. After consenting the patient, the patient was brought to the cardiac catheterization lab and the patient was prepared for the procedure. PROCEDURE TECHNIQUE: After consenting the patient, the patient was prepared for the procedure. Right groin was used for access technique was used for access and after obtaining the access, a 6-Cuban sheath was introduced into the right femoral artery and access was completed without any complication. A 6-Cuban JL4 catheter was used to visualize the left coronary artery system. A 6-Cuban JR4 catheter was used to visualize the right coronary artery system. A 6-Cuban pigtail was used to assess the left ventricle end diastolic pressure and LV function. FINDINGS: The patient had a short left vein without any significant disease, LAD is nonobstructive. Circumflex has a mid vessel about 80% focal lesion. RCA is a medium size vessel with subtotal in the mid portion of the vessel. LV function appears to be normal. CONCLUSION: Double-vessel disease, normal LV systolic function. PLAN: Given the double-vessel disease, the patient is a candidate for intervention. The patient will be continued on heparin, aspirin and Plavix and the patient will be transferred to another facility for intervention of the RCA and circumflex. Kaylee Carrillo MD
[2017-07-18] MEDS ORDERED: Magnesium Sulfate 1 gm in D5W 1 GM/100 ML BAG IVPB ONE (10:00)
[2017-07-18] MEDS ORDERED: Potassium Chloride 20 mEq ER Tab PO ONE ×2 (10:06→14:00)
[2017-07-18] MEDS: Pantoprazole 20 mg EC Tab PO SCH (10:18)
[2017-07-18] MEDS ORDERED: HEPARIN IV ONE (10:22)
[2017-07-18] MEDS ORDERED: SODIUM CHLORIDE 0.9% IV ONE (10:22)
--- NOTE | 2017-07-18 10:30 | CP.PCM.PN ---
Subjective - Date & Time of Evaluation Date of Evaluation: 07/18/17 Time of Evaluation: 10:28 - Subjective Subjective: denies any chest pain or shortness of breath. Objective - Vital Signs/Intake and Output Vital Signs (last 24 hours): Temp Pulse Resp BP Pulse Ox 98.2 F 72 24 91/52 L 97 07/18/17 04:00 07/18/17 07:39 07/18/17 07:39 07/18/17 07:39 07/18/17 07:39 Intake and Output: 07/18/17 07/18/17 06:59 18:59 Intake Total 258.8 4.9 Output Total 400 200 Balance -141.2 -195.1 - Medications Medications: Current Medications Acetaminophen (Tylenol 325mg Tab) 650 mg PO Q6 PRN PRN Reason: (1-10) Pain or Fever Last Admin: 07/17/17 21:46 Dose: 650 mg Aspirin (Ecotrin) 81 mg PO DAILY [facility] Last Admin: 07/18/17 07:50 Dose: 81 mg Clopidogrel Bisulfate (Plavix) 75 mg PO DAILY [facility] Last Admin: 07/18/17 07:49 Dose: 75 mg Heparin Sodium/Sodium Chloride (Heparin 04771 Units/250ml 1/2 Normal Saline) 25 ,000 units in 250 mls @ 4.899 mls/hr IV .Q24H PRN; Protocol; 9 UNITS/KG/HR PRN Reason: PROTOCOL Last Admin: 07/17/17 00:27 Dose: 9 units/kg/hr, 4.899 mls/hr Magnesium Sulfate/Dextrose (Magnesium Sulfate 1 Gm/100 Ml D5w) 1 gm in 100 mls @ 200 mls/hr IVPB ONCE ONE Stop: 07/18/17 10:29 Last Admin: 07/18/17 10:18 Dose: 200 mls/hr Heparin Sodium (Porcine) 1,650 (units/ Sodium Chloride) 1,325 mls @ 50 mls/hr IV ONCE ONE Stop: 07/19/17 06:21 Pantoprazole Sodium (Protonix Ec Tab) 20 mg PO DAILY [facility] Last Admin: 07/18/17 10:18 Dose: 20 mg Potassium Chloride (K-Dur 20 Meq Er Tab) 40 meq PO ONCE ONE Stop: 07/18/17 10:07 Last Admin: 07/18/17 10:20 Dose: 40 meq Potassium Chloride (K-Dur 20 Meq Er Tab) 40 meq PO ONCE ONE Stop: 07/18/17 14:01 Rosuvastatin Calcium (Crestor) 20 mg PO HS [facility] Last Admin: 07/17/17 21:45 Dose: 20 mg - Labs Labs: 07/18/17 06:50 07/18/17 06:50 PT 14.1 SECONDS (9.7-12.2) H 07/18/17 06:50 INR 1.3 07/18/17 06:50 APTT 39 SECONDS (21-34) H D 07/18/17 06:50 - Head Exam Head Exam: NORMOCEPHALIC - Cardiovascular Exam Cardiovascular Exam: REGULAR RHYTHM - Extremities Exam Additional comments: Right groin no bleeding or hematoma. - Neurological Exam Neurological Exam: Oriented x3 Assessment and Plan (1) Chest pain Assessment & Plan: NSTEMI, Troponin trending up. Continue heparin and DAPT. Severe electrolyte abnormalities. Hold intervention and correct electrolyte abnormalities. Keep K> 4 and Mg.2. NPO after midnight, check labs in AM. Plans for intervention in AM. Status: Acute
--- NOTE | 2017-07-18 11:10 | CP.CCUPN ---
<Patrizia Mota - Last Filed: 07/18/17 11:05> CCU Subjective - Physician Review Subjective (Free Text): Patient seen and examined at bedside. No overnight events reported. Patient denies any chest pain or SOB. CCU Objective - Vital Signs / Intake & Output Vital Signs (Last 4 hours): Vital Signs Pulse Resp BP Pulse Ox 07/18/17 07:39 72 24 91/52 L 97 Intake and Output (Last 8hrs): Intake & Output 07/17/17 07/18/17 07/18/17 22:59 06:59 14:59 Intake Total 589.0 39.2 4.9 Output Total 400 200 Balance 189.0 39.2 -195.1 Intake: Intake, IV Amount 69.0 39.2 4.9 Left Antecubital 49.0 39.2 4.9 Right Hand 20 Oral 520 Output: Urine 400 200 Urine, Voided 400 200 Emesis 0 Other: # Voids Urine, Voided 1 0 1 # Bowel Movements 0 0 0 - Physical Exam Narrative Physical Exam (Free Text): - Constitutional Appears: Well, Non-toxic, No Acute Distress - Head Exam Head Exam: ATRAUMATIC, NORMOCEPHALIC - Eye Exam Eye Exam: EOMI - ENT Exam ENT Exam: Mucous Membranes Moist - Respiratory Exam Respiratory Exam: Clear to Auscultation Bilateral - Cardiovascular Exam Cardiovascular Exam: RRR, +S1, +S2 - GI/Abdominal Exam GI & Abdominal Exam: Soft. absent: Tenderness - Extremities Exam Extremities exam: Positive for: normal inspection. Negative for: pedal edema - Neurological Exam Neurological exam: Alert, Oriented x3 - Skin Additional comments: Dressing over left femoral vein. Dressing clean, dry, and intact. - Medications Active Medications: Active Medications Generic Name Dose Route Start Last Admin Trade Name Freq PRN Reason Stop Dose Admin Acetaminophen 650 mg 07/17/17 15:12 07/17/17 21:46 Tylenol 325mg Tab PO 650 mg Q6 PRN Administration (1-10) Pain or Fever Aspirin 81 mg 07/16/17 10:00 07/18/17 10:28 Ecotrin PO Not Given DAILY [facility] Clopidogrel Bisulfate 75 mg 07/17/17 10:00 07/18/17 10:27 Plavix PO Not Given DAILY [facility] Heparin Sodium/Sodium Chloride 25,000 units in 250 mls @ 4.899 mls/hr 15:15 07/17/17 00:27 Heparin 38667 Units/250ml 1/2 Normal Saline IV 9 units/kg/hr .Q24H PRN 4.899 mls/hr PROTOCOL Administration Protocol 9 UNITS/KG/HR Pantoprazole Sodium 20 mg 07/16/17 15:30 07/18/17 10:18 Protonix Ec Tab PO 20 mg DAILY [facility] Administration Potassium Chloride 40 meq 07/18/17 14:00 K-Dur 20 Meq Er Tab PO 07/18/17 14:01 ONCE ONE Rosuvastatin Calcium 5 mg 07/18/17 11:04 Crestor PO HS [facility] - Patient Studies Lab Studies: Lab Studies 07/18/17 07/18/17 07/18/17 Range/Units 06:50 06:50 06:50 WBC 5.1 (4.8-10.8) K/uL RBC 2.78 L (3.80-5.20) Mil/uL Hgb 8.8 L D (11.0-16.0) g/dL Hct 25.7 L (34.0-47.0) % MCV 92.3 (81.0-99.0) fL MCH 31.6 H (27.0-31.0) pg MCHC 34.2 (33.0-37.0) g/dL RDW 13.7 (11.5-14.5) % Plt Count 131 (130-400) K/uL MPV 9.1 (7.2-11.7) fL Neut % (Auto) 55.9 (50.0-75.0) % Lymph % (Auto) 34.5 (20.0-40.0) % [place] % (Auto) 8.6 (0.0-10.0) % Eos % (Auto) 0.6 (0.0-4.0) % Baso % (Auto) 0.4 (0.0-2.0) % Neut # (Auto) 2.9 (1.8-7.0) K/uL Lymph # (Auto) 1.8 (1.0-4.3) K/uL [place] # (Auto) 0.4 (0.0-0.8) K/uL Eos # (Auto) 0.0 (0.0-0.7) K/uL Baso # (Auto) 0.0 (0.0-0.2) K/uL PT 14.1 H (9.7-12.2) SECONDS INR 1.3 APTT 39 H D (21-34) SECONDS Sodium 143 (132-148) mmol/L Potassium 3.0 L (3.6-5.2) mmol/L Chloride 114 H (98-107) mmol/L Carbon Dioxide 22 (22-30) mmol/L Anion Gap 10 (10-20) BUN 12 (7-17) mg/dL Creatinine 0.5 L (0.7-1.2) mg/dL Est GFR ( Amer) > 60 Est GFR (Non-Af Amer) > 60 Random Glucose 66 (65-105) mg/dL Calcium 6.4 L (8.6-10.4) mg/dl Phosphorus 2.6 (2.5-4.5) mg/dL Magnesium 1.7 (1.6-2.3) mg/dL Total Bilirubin 0.3 (0.2-1.3) mg/dL AST 113 H D (14-36) U/L ALT 156 H D (9-52) U/L Alkaline Phosphatase 61 (38-126) U/L Total Protein 4.8 L (6.3-8.3) g/dL Albumin 2.4 L D (3.5-5.0) g/dL Globulin 2.4 (2.2-3.9) gm/dL Albumin/Globulin Ratio 1.0 (1.0-2.1) Laboratory Results - last 24 hr 07/18/17 07/18/17 07/18/17 06:50 06:50 06:50 WBC 5.1 RBC 2.78 L Hgb 8.8 L D Hct 25.7 L MCV 92.3 MCH 31.6 H MCHC 34.2 RDW 13.7 Plt Count 131 MPV 9.1 Neut % (Auto) 55.9 Lymph % (Auto) 34.5 [place] % (Auto) 8.6 Eos % (Auto) 0.6 Baso % (Auto) 0.4 Neut # (Auto) 2.9 Lymph # (Auto) 1.8 [place] # (Auto) 0.4 Eos # (Auto) 0.0 Baso # (Auto) 0.0 PT 14.1 H INR 1.3 APTT 39 H D Sodium 143 Potassium 3.0 L Chloride 114 H Carbon Dioxide 22 Anion Gap 10 BUN 12 Creatinine 0.5 L Est GFR ( Amer) > 60 Est GFR (Non-Af Amer) > 60 Random Glucose 66 Calcium 6.4 L Phosphorus 2.6 Magnesium 1.7 Total Bilirubin 0.3 AST 113 H D ALT 156 H D Alkaline Phosphatase 61 Total Protein 4.8 L Albumin 2.4 L D Globulin 2.4 Albumin/Globulin Ratio 1.0 Review of Systems - Constitutional Constitutional: absent: Fever, Chills - Cardiovascular Cardiovascular: absent: Chest Pain, Irregular Heart Rhythm - Respiratory Respiratory: UNREMARKABLE - Gastrointestinal Gastrointestinal: UNREMARKABLE. absent: Abdominal Pain, Diarrhea - Genitourinary Genitourinary: UNREMARKABLE - Musculoskeletal Musculoskeletal: UNREMARKABLE - Neurological Neurological: UNREMARKABLE. absent: Headaches, Tremor Critical Care Progress Note - Nutrition Nutrition: Nutrition Category Date Time Status NPO Diet [DIET] Diets 07/18/17 Breakfast Active Assessment/Plan - Assessment and Plan (Free Text) Assessment: 71 year old Mongolian-Speaking female with PMHx of HLD admitted to ICU for NSTEMI. Diagnostic Cath showed 80% stenosis of LAD and 90@ stenosis of RCA. Patient to be transferred [facility] tomorrow for therapeutic cardiac cath Plan: Neuro: GCS: 15 Sedation: None Cardio: A: NSTEMI, HLD On Heparin Drip Pt to be transferred tomorrow to [facility] Cont. ASA/Plavix Cont. Crestor. Renal A: Hypocalcemia, Hypomagnesemia, Hypokalemia Magnesium and Potassium replaced Calcium corrected is 7.7 will Monitor. GI: A: Elevated LFT's LFT's likely 2/2 to Crestor Reduced Crestor for 20 to 5 HS Pulm/Endo No Active Issues at this time Proph Patient on Heparin Drip Transferred to [facility] postponed till tomorrow Patient discussed with ICU Attending Patrizia Mota, PGY-1 <Domingo Inman - Last Filed: 07/19/17 16:26> CCU Objective - Vital Signs / Intake & Output Vital Signs (Last 4 hours): Vital Signs Pulse Resp BP Pulse Ox 07/19/17 15:06 59 L 15 112/60 97 07/19/17 15:04 61 14 119/64 07/19/17 15:03 61 15 Intake and Output (Last 8hrs): Intake & Output 07/19/17 07/19/17 07/19/17 06:59 14:59 22:59 Intake Total 64 6 Output Total 700 200 0 Balance -636 -194 0 Intake: Intake, IV Amount 64 6 Left Antecubital 54 6 Right Hand 10 Output: Urine 700 200 0 Urine, Voided 700 200 0 Other: # Voids Urine, Voided 1 1 # Bowel Movements 0 0 - Medications Active Medications: Active Medications Generic Name Dose Route Start Last Admin Trade Name Freq PRN Reason Stop Dose Admin Acetaminophen 650 mg 07/17/17 15:12 07/17/17 21:46 Tylenol 325mg Tab PO 650 mg Q6 PRN Administration (1-10) Pain or Fever Aspirin 81 mg 07/16/17 10:00 07/19/17 10:00 Ecotrin PO Not Given DAILY [facility] Clopidogrel Bisulfate 75 mg 07/17/17 10:00 07/19/17 10:00 Plavix PO Not Given DAILY [facility] Pantoprazole Sodium 20 mg 07/16/17 15:30 07/18/17 10:18 Protonix Ec Tab PO 20 mg DAILY [facility] Administration Rosuvastatin Calcium 5 mg 07/18/17 22:00 07/18/17 23:11 Crestor PO 5 mg HS [facility] Administration - Patient Studies Lab Studies: Microbiology Studies 07/18/17 00:47 MRSA Culture (Admit) - Final Naris MRSA NOT DETECTED Lab Studies 07/19/17 07/19/17 07/18/17 Range/Units 07:14 06:13 23:58 WBC 6.1 (4.8-10.8) K/uL RBC 3.60 L (3.80-5.20) Mil/uL Hgb 11.4 (11.0-16.0) g/dL Hct 33.2 L (34.0-47.0) % MCV 92.3 (81.0-99.0) fL MCH 31.6 H (27.0-31.0) pg MCHC 34.3 (33.0-37.0) g/dL RDW 14.1 (11.5-14.5) % Plt Count 169 (130-400) K/uL MPV 10.0 (7.2-11.7) fL Neut % (Auto) 48.0 L (50.0-75.0) % Lymph % (Auto) 40.7 H (20.0-40.0) % [place] % (Auto) 9.5 (0.0-10.0) % Eos % (Auto) 1.1 (0.0-4.0) % Baso % (Auto) 0.7 (0.0-2.0) % Neut # (Auto) 2.9 (1.8-7.0) K/uL Lymph # (Auto) 2.5 (1.0-4.3) K/uL [place] # (Auto) 0.6 (0.0-0.8) K/uL Eos # (Auto) 0.1 (0.0-0.7) K/uL Baso # (Auto) 0.0 (0.0-0.2) K/uL PT 11.9 (9.7-12.2) SECONDS INR 1.1 APTT 50 H D (21-34) SECONDS Sodium 141 (132-148) mmol/L Potassium 4.1 (3.6-5.2) mmol/L Chloride 103 (98-107) mmol/L Carbon Dioxide 28 (22-30) mmol/L Anion Gap 14 (10-20) BUN 16 (7-17) mg/dL Creatinine 0.7 (0.7-1.2) mg/dL Est GFR ( Amer) > 60 Est GFR (Non-Af Amer) > 60 Random Glucose 93 (65-105) mg/dL Calcium 9.3 (8.6-10.4) mg/dl Phosphorus 3.9 (2.5-4.5) mg/dL Magnesium 2.3 (1.6-2.3) mg/dL Total Bilirubin 0.6 (0.2-1.3) mg/dL AST 93 H (14-36) U/L ALT 159 H (9-52) U/L Alkaline Phosphatase 106 (38-126) U/L Total Protein 7.2 (6.3-8.3) g/dL Albumin 3.9 (3.5-5.0) g/dL Globulin 3.3 (2.2-3.9) gm/dL Albumin/Globulin Ratio 1.2 (1.0-2.1) //18 Range/Units 17:11 WBC (4.8-10.8) K/uL RBC (3.80-5.20) Mil/uL Hgb (11.0-16.0) g/dL Hct (34.0-47.0) % MCV (81.0-99.0) fL MCH (27.0-31.0) pg MCHC (33.0-37.0) g/dL RDW (11.5-14.5) % Plt Count (130-400) K/uL MPV (7.2-11.7) fL Neut % (Auto) (50.0-75.0) % Lymph % (Auto) (20.0-40.0) % [place] % (Auto) (0.0-10.0) % Eos % (Auto) (0.0-4.0) % Baso % (Auto) (0.0-2.0) % Neut # (Auto) (1.8-7.0) K/uL Lymph # (Auto) (1.0-4.3) K/uL [place] # (Auto) (0.0-0.8) K/uL Eos # (Auto) (0.0-0.7) K/uL Baso # (Auto) (0.0-0.2) K/uL PT (9.7-12.2) SECONDS INR APTT 58 H D (21-34) SECONDS Sodium (132-148) mmol/L Potassium (3.6-5.2) mmol/L Chloride (98-107) mmol/L Carbon Dioxide (22-30) mmol/L Anion Gap (10-20) BUN (7-17) mg/dL Creatinine (0.7-1.2) mg/dL Est GFR ( Amer) Est GFR (Non-Af Amer) Random Glucose (65-105) mg/dL Calcium (8.6-10.4) mg/dl Phosphorus (2.5-4.5) mg/dL Magnesium (1.6-2.3) mg/dL Total Bilirubin (0.2-1.3) mg/dL AST (14-36) U/L ALT (9-52) U/L Alkaline Phosphatase (38-126) U/L Total Protein (6.3-8.3) g/dL Albumin (3.5-5.0) g/dL Globulin (2.2-3.9) gm/dL Albumin/Globulin Ratio (1.0-2.1) Laboratory Results - last 24 hr 07/18/17 07/18/17 07/19/17 17:11 23:58 06:13 WBC 6.1 RBC 3.60 L Hgb 11.4 Hct 33.2 L MCV 92.3 MCH 31.6 H MCHC 34.3 RDW 14.1 Plt Count 169 MPV 10.0 Neut % (Auto) 48.0 L Lymph % (Auto) 40.7 H [place] % (Auto) 9.5 Eos % (Auto) 1.1 Baso % (Auto) 0.7 Neut # (Auto) 2.9 Lymph # (Auto) 2.5 [place] # (Auto) 0.6 Eos # (Auto) 0.1 Baso # (Auto) 0.0 PT 11.9 INR 1.1 APTT 58 H D 50 H D Sodium Potassium Chloride Carbon Dioxide Anion Gap BUN Creatinine Est GFR ( Amer) Est GFR (Non-Af Amer) Random Glucose Calcium Phosphorus Magnesium Total Bilirubin AST ALT Alkaline Phosphatase Total Protein Albumin Globulin Albumin/Globulin Ratio 07/19/17 07:14 WBC RBC Hgb Hct MCV MCH MCHC RDW Plt Count MPV Neut % (Auto) Lymph % (Auto) [place] % (Auto) Eos % (Auto) Baso % (Auto) Neut # (Auto) Lymph # (Auto) [place] # (Auto) Eos # (Auto) Baso # (Auto) PT INR APTT Sodium 141 Potassium 4.1 Chloride 103 Carbon Dioxide 28 Anion Gap 14 BUN 16 Creatinine 0.7 Est GFR ( Amer) > 60 Est GFR (Non-Af Amer) > 60 Random Glucose 93 Calcium 9.3 Phosphorus 3.9 Magnesium 2.3 Total Bilirubin 0.6 AST 93 H ALT 159 H Alkaline Phosphatase 106 Total Protein 7.2 Albumin 3.9 Globulin 3.3 Albumin/Globulin Ratio 1.2 Critical Care Progress Note - Nutrition Nutrition: Nutrition Category Date Time Status NPO Diet [DIET] Diets 07/19/17 Breakfast Active Attending/Attestation - Attestation I have personally seen and examined this patient.: Yes I have fully participated in the care of the patient.: Yes I have reviewed all pertinent clinical information: Yes Notes (Text): 07/19/17 16:25 patient seen and examined in the intensive care unit. Transfer to [facility] cancelled because of scheduling Continue anticoagulation continue present treatment
[2017-07-18 13:10] LABS: MEAN CELL VOLUME 92.3 fL (81.0-99.0); MEAN CORPUSCULAR HEMOGLOBIN 30.8 pg (27.0-31.0); MEAN CORPUSCULAR HGB CONC 33.3 g/dL (33.0-37.0); MEAN PLATELET VOLUME 9.4 fL (7.2-11.7); RBC 3.67 Mil/uL (3.80-5.20); RED CELL DISTRIBUTION WIDTH 13.5 % (11.5-14.5); WHITE BLOOD COUNT 6.3 K/uL (4.8-10.8)
[2017-07-18 13:12] LABS: HEMOGLOBIN 11.3 g/dL (11.0-16.0)
--- NOTE | 2017-07-18 15:19 | CARD ---
APPROVED REPORT EKG Measurement Heart [id number] <Conclusion> Normal sinus rhythm Nonspecific ST and T wave abnormality Abnormal ECG
[2017-07-18] MEDS: Heparin25000 units/250ml 1/2NS 25,000 UNITS/250 ML BAG IV PRN (16:59)
--- NOTE | 2017-07-19 00:03 | CP.PCM.PN ---
Subjective - Date & Time of Evaluation Date of Evaluation: 07/18/17 Time of Evaluation: 18:00 - Subjective Subjective: Pt seen and examined at bedside Objective - Vital Signs/Intake and Output Vital Signs (last 24 hours): Temp Pulse Resp BP Pulse Ox 98.7 F 66 16 89/42 L 100 07/18/17 20:00 07/18/17 23:05 07/18/17 23:05 07/18/17 22:05 07/18/17 20:00 Intake and Output: 07/18/17 07/19/17 18:59 06:59 Intake Total 1099.6 224 Output Total 1050 300 Balance 49.6 -76 - Medications Medications: Current Medications Acetaminophen (Tylenol 325mg Tab) 650 mg PO Q6 PRN PRN Reason: (1-10) Pain or Fever Last Admin: 07/17/17 21:46 Dose: 650 mg Aspirin (Ecotrin) 81 mg PO DAILY [facility] Last Admin: 07/18/17 10:28 Dose: Not Given Clopidogrel Bisulfate (Plavix) 75 mg PO DAILY [facility] Last Admin: 07/18/17 10:27 Dose: Not Given Heparin Sodium/Sodium Chloride (Heparin 07703 Units/250ml 1/2 Normal Saline) 25 ,000 units in 250 mls @ 4.899 mls/hr IV .Q24H PRN; Protocol; 9 UNITS/KG/HR PRN Reason: PROTOCOL Last Admin: 07/18/17 16:59 Dose: 11 units/kg/hr, 5.987 mls/hr Pantoprazole Sodium (Protonix Ec Tab) 20 mg PO DAILY [facility] Last Admin: 07/18/17 10:18 Dose: 20 mg Rosuvastatin Calcium (Crestor) 5 mg PO HS [facility] Last Admin: 07/18/17 23:11 Dose: 5 mg - Labs Labs: 07/18/17 13:07 07/18/17 06:50 PT 14.1 SECONDS (9.7-12.2) H 07/18/17 06:50 INR 1.3 07/18/17 06:50 APTT 58 SECONDS (21-34) H D 07/18/17 17:11
[2017-07-19 00:09] LABS: INR 1.1; PROTHROMBIN TIME 11.9 SECONDS (9.7-12.2)
[2017-07-19 06:21] LABS: BASO % 0.7 % (0.0-2.0); EOS # 0.1 K/uL (0.0-0.7); EOS % 1.1 % (0.0-4.0); HEMOGLOBIN 11.4 g/dL (11.0-16.0); LYMPH # 2.5 K/uL (1.0-4.3); LYMPH % 40.7 % (20.0-40.0); MEAN CELL VOLUME 92.3 fL (81.0-99.0); MEAN CORPUSCULAR HEMOGLOBIN 31.6 pg (27.0-31.0); MEAN CORPUSCULAR HGB CONC 34.3 g/dL (33.0-37.0); MONO # 0.6 K/uL (0.0-0.8); MONO % 9.5 % (0.0-10.0); NEUT # 2.9 K/uL (1.8-7.0); NRBC % 0.1 % (0.0-2.0); RBC 3.6 Mil/uL (3.80-5.20); RED CELL DISTRIBUTION WIDTH 14.1 % (11.5-14.5); WHITE BLOOD COUNT 6.1 K/uL (4.8-10.8)
[2017-07-19 07:39] LABS: ALB/GLOB RATIO 1.2 (1.0-2.1); ALBUMIN 3.9 g/dL (3.5-5.0); ALT/SGPT 159 U/L (9-52); AST/SGOT 93 U/L (14-36); BLOOD UREA NITROGEN 16 mg/dL (7-17); CALCIUM 9.3 mg/dl (8.6-10.4); GFR AFRICAN-AMERICAN > 60; GFR NON-AFRICAN AMERICAN > 60
[2017-07-19] MEDS: Pantoprazole 20 mg EC Tab PO SCH (10:00)
--- NOTE | 2017-07-19 18:28 | CP.PCM.PN ---
Subjective - Date & Time of Evaluation Date of Evaluation: 07/19/17 Time of Evaluation: 18:26 - Subjective Subjective: No chets pain or shortness of breath. right and left groins no bleeding or hematoma. Objective - Vital Signs/Intake and Output Vital Signs (last 24 hours): Temp Pulse Resp BP Pulse Ox 98.9 F 67 12 101/66 98 07/19/17 16:00 07/19/17 17:00 07/19/17 17:00 07/19/17 16:06 07/19/17 17:00 Intake and Output: 07/19/17 07/19/17 06:59 18:59 Intake Total 282 186 Output Total 1000 500 Balance -718 -314 - Medications Medications: Current Medications Acetaminophen (Tylenol 325mg Tab) 650 mg PO Q6 PRN PRN Reason: (1-10) Pain or Fever Last Admin: 07/17/17 21:46 Dose: 650 mg Aspirin (Ecotrin) 81 mg PO DAILY [facility] Last Admin: 07/19/17 10:00 Dose: Not Given Clopidogrel Bisulfate (Plavix) 75 mg PO DAILY [facility] Last Admin: 07/19/17 10:00 Dose: Not Given Pantoprazole Sodium (Protonix Ec Tab) 20 mg PO DAILY [facility] Last Admin: 07/19/17 10:00 Dose: Not Given Rosuvastatin Calcium (Crestor) 5 mg PO HS [facility] Last Admin: 07/18/17 23:11 Dose: 5 mg - Labs Labs: 07/19/17 06:13 07/19/17 07:14 PT 11.9 SECONDS (9.7-12.2) 07/18/17 23:58 INR 1.1 07/18/17 23:58 APTT 50 SECONDS (21-34) H D 07/18/17 23:58 - Head Exam Head Exam: NORMOCEPHALIC - Neck Exam Neck Exam: Normal Inspection - Respiratory Exam Respiratory Exam: NORMAL BREATHING PATTERN - Cardiovascular Exam Cardiovascular Exam: REGULAR RHYTHM - Extremities Exam Extremities Exam: Normal Inspection - Neurological Exam Neurological Exam: Oriented x3 Assessment and Plan (1) Chest pain Assessment & Plan: NSTEMI, successful PTCA/Stent of 99.9% RCA. Continue DAPT. Staged PCI of LCx. Discussed with patient and family at bed side. Status: Acute
[2017-07-20 06:36] LABS: BASO % 0.5 % (0.0-2.0); EOS # 0.1 K/uL (0.0-0.7); EOS % 1.1 % (0.0-4.0); HEMOGLOBIN 11.8 g/dL (11.0-16.0); LYMPH # 1.6 K/uL (1.0-4.3); LYMPH % 32.2 % (20.0-40.0); MEAN CELL VOLUME 91.7 fL (81.0-99.0); MEAN CORPUSCULAR HEMOGLOBIN 31.6 pg (27.0-31.0); MEAN CORPUSCULAR HGB CONC 34.5 g/dL (33.0-37.0); MEAN PLATELET VOLUME 9.6 fL (7.2-11.7); MONO # 0.4 K/uL (0.0-0.8); MONO % 8.5 % (0.0-10.0); NEUT # 2.8 K/uL (1.8-7.0); NEUT % 57.7 % (50.0-75.0); NRBC % 0.1 % (0.0-2.0); RBC 3.73 Mil/uL (3.80-5.20); RED CELL DISTRIBUTION WIDTH 13.6 % (11.5-14.5); WHITE BLOOD COUNT 4.9 K/uL (4.8-10.8)
[2017-07-20 06:47] LABS: INR 1.1
[2017-07-20 06:58] LABS: ALB/GLOB RATIO 1.1 (1.0-2.1); ALBUMIN 3.1 g/dL (3.5-5.0); ALT/SGPT 96 U/L (9-52); AST/SGOT 49 U/L (14-36); BLOOD UREA NITROGEN 16 mg/dL (7-17); CALCIUM 7.7 mg/dl (8.6-10.4); GFR AFRICAN-AMERICAN > 60; GFR NON-AFRICAN AMERICAN > 60
--- NOTE | 2017-07-20 08:34 | CP.PCM.PN ---
Subjective - Date & Time of Evaluation Date of Evaluation: 07/19/17 Time of Evaluation: 19:00 - Subjective Subjective: Pt seen and examined at bedside, family is there, no chest pain, shortness of breath, dizziness, nausea, vomitting, seen by cardiology too, NSTEMI, successful PTCA/Stent of 99.9% RCA. Continue DAPT. Staged PCI of LCx. Discussed with patient and family at bed side Objective - Vital Signs/Intake and Output Vital Signs (last 24 hours): Temp Pulse Resp BP Pulse Ox 97.9 F 69 13 110/59 L 98 07/20/17 08:00 07/20/17 08:06 07/20/17 08:06 07/20/17 08:06 07/20/17 08:06 Intake and Output: 07/20/17 07/20/17 06:59 18:59 Intake Total 50 180 Output Total 400 300 Balance -350 -120 - Medications Medications: Current Medications Acetaminophen (Tylenol 325mg Tab) 650 mg PO Q6 PRN PRN Reason: (1-10) Pain or Fever Last Admin: 07/20/17 02:00 Dose: 650 mg Aspirin (Ecotrin) 81 mg PO DAILY [facility] Last Admin: 07/19/17 10:00 Dose: Not Given Clopidogrel Bisulfate (Plavix) 75 mg PO DAILY [facility] Last Admin: 07/19/17 10:00 Dose: Not Given Pantoprazole Sodium (Protonix Ec Tab) 20 mg PO DAILY [facility] Last Admin: 07/19/17 10:00 Dose: Not Given Rosuvastatin Calcium (Crestor) 5 mg PO HS [facility] Last Admin: 07/19/17 22:30 Dose: 5 mg - Labs Labs: 07/20/17 06:29 07/20/17 06:31 PT 12.0 SECONDS (9.7-12.2) 07/20/17 06:31 INR 1.1 07/20/17 06:31 APTT 30 SECONDS (21-34) D 07/20/17 06:31
[2017-07-20] MEDS: Pantoprazole 20 mg EC Tab PO SCH (09:59)
[2017-07-20 11:46] VITALS: BP 112/63; O2SAT 99
--- NOTE | 2017-07-20 12:03 | CP.PCM.PN ---
Subjective - Date & Time of Evaluation Date of Evaluation: 07/20/17 Time of Evaluation: 12:00 - Subjective Subjective: No chest pain or shortness of breath. Objective - Vital Signs/Intake and Output Vital Signs (last 24 hours): Temp Pulse Resp BP Pulse Ox 97.9 F 76 15 112/63 99 07/20/17 08:00 07/20/17 11:05 07/20/17 11:05 07/20/17 11:05 07/20/17 11:05 Intake and Output: 07/20/17 07/20/17 06:59 18:59 Intake Total 50 420 Output Total 400 300 Balance -350 120 - Medications Medications: Current Medications Acetaminophen (Tylenol 325mg Tab) 650 mg PO Q6 PRN PRN Reason: (1-10) Pain or Fever Last Admin: 07/20/17 02:00 Dose: 650 mg Aspirin (Ecotrin) 81 mg PO DAILY [facility] Last Admin: 07/20/17 09:59 Dose: 81 mg Clopidogrel Bisulfate (Plavix) 75 mg PO DAILY [facility] Last Admin: 07/20/17 09:59 Dose: 75 mg Pantoprazole Sodium (Protonix Ec Tab) 20 mg PO DAILY [facility] Last Admin: 07/20/17 09:59 Dose: 20 mg Rosuvastatin Calcium (Crestor) 5 mg PO HS [facility] Last Admin: 07/19/17 22:30 Dose: 5 mg - Labs Labs: 07/20/17 06:29 07/20/17 06:31 PT 12.0 SECONDS (9.7-12.2) 07/20/17 06:31 INR 1.1 07/20/17 06:31 APTT 30 SECONDS (21-34) D 07/20/17 06:31 - Neck Exam Neck Exam: Normal Inspection - Respiratory Exam Respiratory Exam: NORMAL BREATHING PATTERN - Cardiovascular Exam Cardiovascular Exam: REGULAR RHYTHM - Extremities Exam Extremities Exam: Normal Inspection - Neurological Exam Neurological Exam: Oriented x3 Assessment and Plan (1) Chest pain Assessment & Plan: NSTEMI, successful PTCA/Stent of RCA. Cardiac zavaal stable. May D/C home. Follow -up as out patient for staged PCI of LCx as out patient. DAPT compliance. Risk factor modification. Status: Acute
--- NOTE | 2017-07-20 13:58 | CP.PCM.PN ---
Subjective - Date & Time of Evaluation Date of Evaluation: 07/20/17 Time of Evaluation: 13:55 - Subjective Subjective: PATIENT WAS ADMITTED FOR CHEST PAIN AAOX3 / DENIES CHEST PAIN OR SOB NO SIGN OF DISTRESS NOTED Objective - Vital Signs/Intake and Output Vital Signs (last 24 hours): Temp Pulse Resp BP Pulse Ox 97.9 F 76 15 112/63 99 07/20/17 08:00 07/20/17 11:05 07/20/17 11:05 07/20/17 11:05 07/20/17 11:05 Intake and Output: 07/20/17 07/20/17 06:59 18:59 Intake Total 50 420 Output Total 400 300 Balance -350 120 - Medications Medications: Current Medications Acetaminophen (Tylenol 325mg Tab) 650 mg PO Q6 PRN PRN Reason: (1-10) Pain or Fever Last Admin: 07/20/17 02:00 Dose: 650 mg Aspirin (Ecotrin) 81 mg PO DAILY [facility] Last Admin: 07/20/17 09:59 Dose: 81 mg Clopidogrel Bisulfate (Plavix) 75 mg PO DAILY [facility] Last Admin: 07/20/17 09:59 Dose: 75 mg Pantoprazole Sodium (Protonix Ec Tab) 20 mg PO DAILY [facility] Last Admin: 07/20/17 09:59 Dose: 20 mg Rosuvastatin Calcium (Crestor) 5 mg PO HS [facility] Last Admin: 07/19/17 22:30 Dose: 5 mg - Labs Labs: 07/20/17 06:29 07/20/17 06:31 PT 12.0 SECONDS (9.7-12.2) 07/20/17 06:31 INR 1.1 07/20/17 06:31 APTT 30 SECONDS (21-34) D 07/20/17 06:31 Assessment and Plan - Assessment and Plan (Free Text) Assessment: PATIENT SEEN AND EXAMINED AT THE BEDSIDE LUNG SOUND CLEAR ELLY [facility]NI WAS POSITIVE ON ADM PATIENT WENT FOR PTCA/STENT OF RCA AND PLAN IS STAGED PCI LCx OUT PATIENT DISCUSS WITH DR PAZ AND DR TREVINO WHO CLEAR PATIENT FOR DC FOLLOW UP WITH DR TREVINO IN 1 WEEK AT HIS OFFICE ----CALL FOR APPOINTMENT FOLLOW UP WITH DR PAZ AT HIS OFFICE NEXT MONDAY(07/25/2017) ---CALL TO CONFIRM CONTINUE ALL MEDICATION NEW PRESCRIPTION GIVEN ASPIRIN 81 MG BY MOUTH ONE TAB DAILY PLAVIX 75 MG BY MOUTH ONE TAB DAILY ACTIVITY TOLERATED CALL DR TREVINO OR DR PAZ IF SYMPTOMS RETURN OR WORSENING DICUSS WITH PATIENT WHO AGREE AND VERBALIZED UNDERSTANDING
[2017-07-20 16:47] VITALS: PULSE 70; RESP 18; TEMP 97.7
--- NOTE | 2017-07-21 05:11 | CP.PCM.DIS ---
Provider - Provider Date of Admission: 07/17/17 10:30 Attending physician: Dominick Krishnamurthy MD Time Spent in preparation of Discharge (in minutes): 45 Hospital Course - Lab Results Lab Results: Micro Results 07/18/17 00:47 Naris MRSA Culture (Admit) - Final MRSA NOT DETECTED Most Recent Lab Values WBC 4.9 K/uL (4.8-10.8) 07/20/17 06:29 RBC 3.73 Mil/uL (3.80-5.20) L 07/20/17 06:29 Hgb 11.8 g/dL (11.0-16.0) 07/20/17 06:29 Hct 34.3 % (34.0-47.0) 07/20/17 06:29 MCV 91.7 fL (81.0-99.0) 07/20/17 06:29 MCH 31.6 pg (27.0-31.0) H 07/20/17 06:29 MCHC 34.5 g/dL (33.0-37.0) 07/20/17 06:29 RDW 13.6 % (11.5-14.5) 07/20/17 06:29 Plt Count 194 K/uL (130-400) 07/20/17 06:29 MPV 9.6 fL (7.2-11.7) 07/20/17 06:29 Neut % (Auto) 57.7 % (50.0-75.0) 07/20/17 06:29 Lymph % (Auto) 32.2 % (20.0-40.0) 07/20/17 06:29 Butts % (Auto) 8.5 % (0.0-10.0) 07/20/17 06:29 Eos % (Auto) 1.1 % (0.0-4.0) 07/20/17 06:29 Baso % (Auto) 0.5 % (0.0-2.0) 07/20/17 06:29 Neut # (Auto) 2.8 K/uL (1.8-7.0) 07/20/17 06:29 Lymph # (Auto) 1.6 K/uL (1.0-4.3) 07/20/17 06:29 Butts # (Auto) 0.4 K/uL (0.0-0.8) 07/20/17 06:29 Eos # (Auto) 0.1 K/uL (0.0-0.7) 07/20/17 06:29 Baso # (Auto) 0.0 K/uL (0.0-0.2) 07/20/17 06:29 PT 12.0 SECONDS (9.7-12.2) 07/20/17 06:31 INR 1.1 07/20/17 06:31 APTT 30 SECONDS (21-34) D 07/20/17 06:31 D-Dimer, Quantitative < 200 ng/mlDDU (0-243) 07/16/17 00:21 Sodium 142 mmol/L (132-148) 07/20/17 06:31 Potassium 3.9 mmol/L (3.6-5.2) 07/20/17 06:31 Chloride 105 mmol/L (98-107) 07/20/17 06:31 Carbon Dioxide 25 mmol/L (22-30) 07/20/17 06:31 Anion Gap 16 (10-20) 07/20/17 06:31 BUN 16 mg/dL (7-17) 07/20/17 06:31 Creatinine 0.7 mg/dL (0.7-1.2) 07/20/17 06:31 Est GFR ( Amer) > 60 07/20/17 06:31 Est GFR (Non-Af Amer) > 60 07/20/17 06:31 Random Glucose 72 mg/dL (65-105) 07/20/17 06:31 Calcium 7.7 mg/dl (8.6-10.4) L 07/20/17 06:31 Phosphorus 4.5 mg/dL (2.5-4.5) 07/20/17 06:31 Magnesium 2.1 mg/dL (1.6-2.3) 07/20/17 06:31 Total Bilirubin 0.5 mg/dL (0.2-1.3) 07/20/17 06:31 AST 49 U/L (14-36) H D 07/20/17 06:31 ALT 96 U/L (9-52) H D 07/20/17 06:31 Alkaline Phosphatase 72 U/L (38-126) 07/20/17 06:31 Total Creatine Kinase 1177 U/L (30-135) H 07/17/17 07:22 CK-MB (Mass) 70.1 ng/mL (0.0-3.38) H 07/17/17 07:22 Troponin I 18.1000 ng/mL (0.00-0.120) H* 07/17/17 07:22 Total Protein 6.1 g/dL (6.3-8.3) L 07/20/17 06:31 Albumin 3.1 g/dL (3.5-5.0) L D 07/20/17 06:31 Globulin 2.9 gm/dL (2.2-3.9) 07/20/17 06:31 Albumin/Globulin Ratio 1.1 (1.0-2.1) 07/20/17 06:31 - Hospital Course Hospital Course: Pt seen and examined at bedside, is stable for discharge, deneis any chest pain , nausea, vomitting, diagnosed of NSTEMI, successful PTCA/Stent of RCA. Cardiac zavala stable. July D/C home. Follow-up as out patient for staged PCI of LCx as out patient. DAPT compliance. Risk factor modification. Discharge Exam - Head Exam Head Exam: NORMOCEPHALIC - Eye Exam Eye Exam: EOMI, Normal appearance, PERRL Pupil Exam: NORMAL ACCOMODATION, PERRL - ENT Exam ENT Exam: Mucous Membranes Moist - Respiratory Exam Respiratory Exam: Clear to PA & Lateral, NORMAL BREATHING PATTERN - Cardiovascular Exam Cardiovascular Exam: +S1, +S2 - GI/Abdominal Exam GI & Abdominal Exam: Normal Bowel Sounds - Rectal Exam Rectal Exam: Deferred Discharge Plan - Discharge Medications Prescriptions: Aspirin [Ecotrin] 81 mg PO DAILY 30 Days tabec Clopidogrel [Plavix] 75 mg PO DAILY 30 Days tab - Follow Up Plan Condition: STABLE Disposition: HOME/ ROUTINE Instructions: Chest Pain (DC), Aspirin, Clopidogrel Additional Instructions: FOLLOW UP WITH DR KRISHNAMURTHY IN 1 WEEK AT HIS OFFICE ----CALL FOR APPOINTMENT FOLLOW UP WITH DR PAZ AT HIS OFFICE NEXT MONDAY(07/25/2017) ---CALL TO CONFIRM CONTINUE ALL MEDICATION NEW PRESCRIPTION GIVEN ASPIRIN 81 MG BY MOUTH ONE TAB DAILY PLAVIX 75 MG BY MOUTH ONE TAB DAILY ACTIVITY TOLERATED CALL DR KRISHNAMURTHY OR DR PAZ IF SYMPTOMS RETURN OR WORSENING Referrals: Kaylee Paz MD [Staff Provider] - Dominick Krishnamurthy MD [Staff Provider] -
== END 2017-07-20 16:12 | disposition home or self-care (01) | DRG 282 ==
LOC: C.ER 23:41 → C.6T 07-16 02:39 → OBSVTOIN 07-17 10:30 → C.9I 07-17 13:57
PROVIDERS: ADMIT Internal Medicine; ATTEND Internal Medicine
PROC: B211YZZ Fluoroscopy of Multiple Coronary Arteries using Other Contrast (ICD-10-PCS; 2017-07-17)
PROC: B215YZZ Fluoroscopy of Left Heart using Other Contrast (ICD-10-PCS; 2017-07-17)
PROC: 4A023N7 Measurement of Cardiac Sampling and Pressure, Left Heart, Percutaneous Approach (ICD-10-PCS; principal; 2017-07-17 10:00)
DX: I21.4 Non-ST elevation (NSTEMI) myocardial infarction (principal); E78.00 Pure hypercholesterolemia, unspecified; E78.5 Hyperlipidemia, unspecified; E83.42 Hypomagnesemia; E83.51 Hypocalcemia; E87.6 Hypokalemia; I10 Essential (primary) hypertension; I25.10 Atherosclerotic heart disease of native coronary artery without angina pectoris; M81.0 Age-related osteoporosis without current pathological fracture; T46.6X5A Adverse effect of antihyperlipidemic and antiarteriosclerotic drugs, initial encounter; R79.89 Other specified abnormal findings of blood chemistry